=== PATIENT | female | born 1935 | race Caucasian/White ===

== ENCOUNTER → 2016-09-24 | Outpatient (CLI) | payer MEDICARE ==
[~2016-09-24] MED LIST: ASPIRIN 81M81 MG/TA2 PO; BETAPACE 80MG80 MG PO; CALCIUM 500500 M2 PO; CALCIUM CITRAT200 MG PO; CARDI-OMEGA1000 MG PO; CO Q-1010 MG PO; FEMARA2.5 MG PO; FLEXERIL10 MG PO; GLUCOSAMINE & C1 TE1 PO; HYALURONIC ACID; HYALURONIC ACID PO; LISINOPRIL5 MG PO; MELATONIN5 M1 SL; MILK THISTLE500 M1 PO; NORCO 325 MG-51 TAB PO; NYSTATIN 100MU/ML PO; PHENERGAN 25 TA25 MG PO; SCOPALAMINE PATCH TOP; TURMERIC1 POW; VICODIN 5/5001 UDTAB PO; VITAMIN C500 MG PO; VITAMIN D PO; VITAMIN D5000 IU PO; [UNRECOGNIZED DRUG - OTHER]
== END ==
LOC: MC.RAD 11:10
DX: Z12.31 Encounter for screening mammogram for malignant neoplasm of breast (principal)

== ENCOUNTER 2017-06-28 14:10 | Emergency (ER) | payer MEDICARE ==
[2005-07-27 03:46] VITALS: BP 127/84
[~2017-06-28] VITALS: Ht 162.6 cm; Wt 77.3 kg
[2017-06-28 14:14] VITALS: BP 161/112; TEMP 96.9
[2017-06-28] MEDS ORDERED: ALEVE 220MG220 MG PO (15:18)
[2017-06-28 16:50] VITALS: PULSE 56
== END 2017-06-28 16:50 | disposition home or self-care (01) ==
LOC: COL.ER 14:10
DX: S50.02XA Contusion of left elbow, initial encounter (principal); S29.012A Strain of muscle and tendon of back wall of thorax, initial encounter; S39.012A Strain of muscle, fascia and tendon of lower back, initial encounter; W18.2XXA Fall in (into) shower or empty bathtub, initial encounter; Y93.E1 Activity, personal bathing and showering

== ENCOUNTER → 2018-02-05 | Outpatient (CLI) | payer MEDICARE ==
[~2018-02-05] MED LIST changes: +ALEVE 220MG220 MG PO
== END ==
LOC: MC.RAD 11:00
DX: Z12.31 Encounter for screening mammogram for malignant neoplasm of breast (principal); Z90.11 Acquired absence of right breast and nipple; Z85.3 Personal history of malignant neoplasm of breast

== ENCOUNTER 2018-06-30 22:54 | Emergency (ER) | payer MEDICARE, OTHER ==
[2005-07-27 03:46] VITALS: BP 127/84
[~2018-06-30] VITALS: Ht 165.1 cm; Wt 79.1 kg
[2018-06-30 22:58] VITALS: TEMP 97.6
[2018-07-01 01:21] VITALS: BP 176/74; PULSE 47
== END 2018-07-01 01:28 | disposition home or self-care (01) ==
LOC: COL.ER 22:54
DX: S01.01XA Laceration without foreign body of scalp, initial encounter (principal); S16.1XXA Strain of muscle, fascia and tendon at neck level, initial encounter; I48.91 Unspecified atrial fibrillation; Z23 Encounter for immunization; Z79.82 Long term (current) use of aspirin; W01.198A Fall on same level from slipping, tripping and stumbling with subsequent striking against other object, initial encounter; Y92.009 Unspecified place in unspecified non-institutional (private) residence as the place of occurrence of the external cause

== ENCOUNTER 2018-10-16 00:06 | Emergency (ER) | payer MEDICARE ==
[2005-07-27 03:46] VITALS: BP 127/84
[2018-10-16 00:27] VITALS: TEMP 96.9
[2018-10-16 00:32] LABS: BASO % 0.7 % (0.0-2.0); EOS # 0.3 (0.0-0.7); EOS % 5.3 % (0-4.0); GRAN # 2.8 (1.4-6.5); GRAN % 49.3 % (42.2-75.2); HEMATOCRIT 45.7 % (37.0-47.0); HEMOGLOBIN 15.3 g/dl (12.5-16.0); LYMPH # 1.7 (1.2-3.4); LYMPH % 30.5 % (20.0-51.0); MEAN CELL VOLUME 92 fl (80.0-100.0); MEAN CORPUSCULAR HEMOGLOBIN 31 pg (27.0-31.0); MEAN CORPUSCULAR HGB CONC 34 g/dl (33.0-37.0); MEAN PLATELET VOLUME 10.4 fl (7.4-10.4); MONO # 0.8 (0.1-0.6); PLATELET COUNT 229 K/mm3 (130-400); RED BLOOD COUNT 4.96 M/mm3 (4.10-5.30); REDCELL DISTRIBUTION WIDTH-CV 12.5 % (11.5-14.5)
[2018-10-16 00:43] LABS: ALANINE AMINOTRANSFERASE 14 U/L (9-52); ALBUMIN 4.2 gm/dL (3.5-5.0); ALKALINE PHOSPHATASE 99 U/L (50-136); ANION GAP 12 mmol/L (7-16); AST,SGOT 24 U/L (15-37); BILIRUBIN,TOTAL 0.3 mg/dL (0.0-1.0); BLOOD UREA NITROGEN 22 mg/dL (7-17); CALCIUM 9.9 mg/dL (8.4-10.2); CARBON DIOXIDE 24 mmol/L (22-30); CHLORIDE 105 mmol/L (98-107); GLUCOSE 99 mg/dL (74-106); INR 0.9 (0.8-3.0); POTASSIUM 4.2 mmol/L (3.4-5.0); PROTHROMBIN TIME 10.3 SECONDS (9.7-12.8); SODIUM 142 mmol/L (137-145); TOTAL PROTEIN 7.7 gm/dL (6.4-8.2)
[2018-10-16 00:45] LABS: PARTIAL THROMBOPLASTIN TIME 27.1 SECONDS (26.0-37.0)
[2018-10-16 01:04] LABS: TROPONIN-I < 0.012 ng/mL (0.000-0.035)
[2018-10-16] MEDS ORDERED: ELIQUIS 5MG PO (04:15)
[2018-10-16 04:40] VITALS: BP 136/71; PULSE 63
== END 2018-10-16 04:40 | disposition home or self-care (01) ==
LOC: COL.ER 00:06
PROVIDERS: Emergency Medicine
DX: I48.92 Unspecified atrial flutter (principal); I48.91 Unspecified atrial fibrillation; Z85.3 Personal history of malignant neoplasm of breast; Z79.82 Long term (current) use of aspirin; Z90.11 Acquired absence of right breast and nipple
CPT/HCPCS: J7030

== ENCOUNTER 2018-12-06 18:10 | Emergency (ER) | payer MEDICARE ==
[2005-07-27 03:46] VITALS: BP 127/84
[~2018-12-06] VITALS: Ht 167.6 cm; Wt 75.9 kg
[~2018-12-06 18:10] MED LIST changes: +ELIQUIS 5MG PO
[2018-12-06 18:17] VITALS: TEMP 97.8
[2018-12-06] MEDS ORDERED: VITAMIN B COMPL1 SGL PO (18:43)
[2018-12-06] MEDS ORDERED: MAGNESIUM250 M1 PO (18:44)
[2018-12-06] MEDS ORDERED: OSCAL 500 TAB500 MG PO (18:44)
[2018-12-06] MEDS ORDERED: COUMADIN4 MG PO (18:55)
[2018-12-06 19:04] VITALS: BP 122/60
[2018-12-06 19:42] VITALS: PULSE 55
== END 2018-12-06 19:43 | disposition home or self-care (01) ==
LOC: COL.ER 18:10
DX: S09.90XA Unspecified injury of head, initial encounter (principal); S00.83XA Contusion of other part of head, initial encounter; I48.91 Unspecified atrial fibrillation; Z85.3 Personal history of malignant neoplasm of breast; W01.198A Fall on same level from slipping, tripping and stumbling with subsequent striking against other object, initial encounter; Y92.009 Unspecified place in unspecified non-institutional (private) residence as the place of occurrence of the external cause

== ENCOUNTER → 2020-03-20 | Outpatient (CLI) | payer MEDICARE ==
[~2020-03-20] MED LIST changes: +ALPHA LIPOIC A200 M2 PO; +B-12 500 MCG PO; +COUMADIN4 MG PO; +MAGNESIUM250 M1 PO; +MILK THISTLE150 MG PO; +NORVASC 5MG5 MG/TAB PO; +OSCAL 500 TAB500 MG PO; +THE MEDICINE S200 M2 PO; +TYLENOL 500MG500 MG PO; +ULTRAM 50MG TAB50 MG PO; +VITAMIN B COMPL1 SGL PO; +VITAMIN D 1001000 IU PO
[2020-03-20 11:57] VITALS: BP 125/61; PULSE 54; TEMP 98.3
== END ==
LOC: COL.ER 11:43
DX: Z48.02 Encounter for removal of sutures (principal)

== ENCOUNTER 2020-07-31 17:12 | Emergency (ER) | payer MEDICARE ==
[2005-07-27 03:46] VITALS: BP 127/84
[2020-07-31 17:29] VITALS: TEMP 98.2
[2020-07-31 18:41] VITALS: BP 132/65; PULSE 50
== END 2020-07-31 18:42 | disposition home or self-care (01) ==
LOC: COL.ER 17:12
DX: S30.0XXA Contusion of lower back and pelvis, initial encounter (principal); I10 Essential (primary) hypertension; I48.91 Unspecified atrial fibrillation; Z88.1 Allergy status to other antibiotic agents; Z88.4 Allergy status to anesthetic agent; Z79.01 Long term (current) use of anticoagulants; W07.XXXA Fall from chair, initial encounter; Y92.009 Unspecified place in unspecified non-institutional (private) residence as the place of occurrence of the external cause

== ENCOUNTER 2020-09-13 03:59 | Emergency (ER) | payer MEDICARE ==
[2005-07-27 03:46] VITALS: BP 127/84
[~2020-09-13] VITALS: Ht 160 cm; Wt 75.5 kg
[2020-09-13 04:24] LABS: BASO % 0.9 % (0.0-2.0); EOS # 0.3 (0.0-0.7); EOS % 5.3 % (0-4.0); GRAN # 2.3 (1.4-6.5); HEMATOCRIT 45.2 % (37.0-47.0); HEMOGLOBIN 14.4 g/dl (12.5-16.0); LYMPH # 1.4 (1.2-3.4); LYMPH % 30.3 % (20.0-51.0); MEAN CELL VOLUME 91 fl (80.0-100.0); MEAN CORPUSCULAR HEMOGLOBIN 29 pg (27.0-31.0); MEAN CORPUSCULAR HGB CONC 32 g/dl (33.0-37.0); MEAN PLATELET VOLUME 10.8 fl (7.4-10.4); MONO # 0.7 (0.1-0.6); MONO % 14.5 % (1.7-9.3); PLATELET COUNT 227 K/mm3 (130-400); RED BLOOD COUNT 4.96 M/mm3 (4.10-5.30); REDCELL DISTRIBUTION WIDTH-CV 13.2 % (11.5-14.5)
[2020-09-13 04:28] LABS: INR 1.8 (0.8-3.0); PROTHROMBIN TIME 20.2 SECONDS (9.7-12.8)
[2020-09-13 04:30] LABS: ALANINE AMINOTRANSFERASE 15 U/L (4-34); ALBUMIN 4.4 gm/dL (3.5-5.0); ALKALINE PHOSPHATASE 91 U/L (50-136); ANION GAP 7 mmol/L (7-16); AST,SGOT 28 U/L (15-37); BILIRUBIN,TOTAL 0.3 mg/dL (0.0-1.0); BLOOD UREA NITROGEN 18 mg/dL (7-17); CALCIUM 9.7 mg/dL (8.4-10.2); CARBON DIOXIDE 28 mmol/L (22-30); CHLORIDE 104 mmol/L (98-107); CREATINE KINASE 65 U/L (30-135); CREATININE, serum 0.75 (0.52-1.25); GLUCOSE 101 mg/dL (74-106); POTASSIUM 4.3 mmol/L (3.4-5.0); SODIUM 140 mmol/L (137-145); TOTAL PROTEIN 7.6 gm/dL (6.4-8.2)
[2020-09-13 04:45] LABS: TROPONIN-I < 0.012 ng/mL (0.000-0.035)
[2020-09-13 05:34] VITALS: BP 130/62; PULSE 47; TEMP 97.5
== END 2020-09-13 05:31 | disposition home or self-care (01) ==
LOC: COL.ER 03:59
PROVIDERS: Emergency Medicine
DX: I48.0 Paroxysmal atrial fibrillation (principal); I10 Essential (primary) hypertension; Z88.1 Allergy status to other antibiotic agents; Z88.4 Allergy status to anesthetic agent; Z79.01 Long term (current) use of anticoagulants
CPT/HCPCS: J7030

== ENCOUNTER 2020-09-30 11:06 | Emergency (ER) | payer MEDICARE ==
[2005-07-27 03:46] VITALS: BP 127/84
[~2020-09-30] VITALS: Ht 160 cm; Wt 75.5 kg
[2020-09-30 11:51] LABS: INR 2.1 (0.8-3.0); PROTHROMBIN TIME 23.2 SECONDS (9.7-12.8)
[2020-09-30] MEDS ORDERED: LIDODERM 5% PATC1 EA TP (12:45)
[2020-09-30 13:09] VITALS: BP 131/73; PULSE 44; TEMP 97.9
== END 2020-09-30 13:10 | disposition home or self-care (01) ==
LOC: COL.ER 11:06
PROVIDERS: Emergency Medicine
DX: S22.31XA Fracture of one rib, right side, initial encounter for closed fracture (principal); I48.0 Paroxysmal atrial fibrillation; Z79.01 Long term (current) use of anticoagulants; W01.10XA Fall on same level from slipping, tripping and stumbling with subsequent striking against unspecified object, initial encounter

== ENCOUNTER 2020-11-14 11:34 | Emergency (ER) | payer MEDICARE ==
[~2020-11-14] VITALS: Ht 162.6 cm; Wt 75.5 kg
[~2020-11-14 11:34] MED LIST changes: +LIDODERM 5% PATC1 EA TP
[2020-11-14 12:10] VITALS: TEMP 98
[2020-11-14 13:14] LABS: BASO # 0.1 (0.0-0.2); BASO % 0.9 % (0.0-2.0); EOS # 0.2 (0.0-0.7); EOS % 4.2 % (0-4.0); GRAN # 3.4 (1.4-6.5); GRAN % 58.3 % (42.2-75.2); HEMOGLOBIN 13.2 g/dl (12.5-16.0); LYMPH # 1.3 (1.2-3.4); LYMPH % 22.2 % (20.0-51.0); MEAN CELL VOLUME 91 fl (80.0-100.0); MEAN CORPUSCULAR HEMOGLOBIN 29 pg (27.0-31.0); MEAN CORPUSCULAR HGB CONC 32 g/dl (33.0-37.0); MEAN PLATELET VOLUME 11.4 fl (7.4-10.4); MONO # 0.8 (0.1-0.6); MONO % 14.2 % (1.7-9.3); PLATELET COUNT 213 K/mm3 (130-400); REDCELL DISTRIBUTION WIDTH-CV 13.2 % (11.5-14.5)
[2020-11-14 13:17] LABS: INR 3.5 (0.8-3.0); PROTHROMBIN TIME 39.4 SECONDS (9.7-12.8)
[2020-11-14 13:26] LABS: ALBUMIN 3.8 gm/dL (3.5-5.0); BILIRUBIN,TOTAL 0.3 mg/dL (0.0-1.0); CALCIUM 9.3 mg/dL (8.4-10.2); CREATININE, serum 0.66 (0.52-1.25); POTASSIUM 4.6 mmol/L (3.4-5.0); TOTAL PROTEIN 6.9 gm/dL (6.4-8.2)
[2020-11-14 14:12] VITALS: BP 145/92; PULSE 50
== END 2020-11-14 14:12 | disposition home or self-care (01) ==
LOC: COL.ER 11:34
PROVIDERS: Nurse Practitioner Primary Care
DX: M25.511 Pain in right shoulder (principal); I10 Essential (primary) hypertension; I48.91 Unspecified atrial fibrillation; Z79.01 Long term (current) use of anticoagulants; Z79.899 Other long term (current) drug therapy; W01.198A Fall on same level from slipping, tripping and stumbling with subsequent striking against other object, initial encounter; Y92.009 Unspecified place in unspecified non-institutional (private) residence as the place of occurrence of the external cause

== ENCOUNTER 2021-01-22 14:00 | Outpatient (RCR) | payer MEDICARE ==
[2021-01-25] MEDS ORDERED: COUMADIN 3MG3 MG/TAB PO (08:21)
[2021-01-25] MEDS ORDERED: BLUE-EMU LIDOC1 EACH TP (08:22)
[2021-01-25] MEDS ORDERED: OMNICEF 300MG300 MG PO (08:24)
[2021-02-09] MEDS ORDERED: OSCAL 500 TAB500 MG PO ×2 (11:18)
[2021-02-09] MEDS ORDERED: VITAMIN C500 MG PO ×2 (11:19)
[2021-02-09] MEDS ORDERED: DUO-KAPS1 CAP PO ×2 (11:19)
[2021-02-09] MEDS ORDERED: TYLENOL 500MG500 MG PO ×2 (11:20)
[2021-02-09] MEDS ORDERED: ULTRAM 50MG TAB50 MG PO ×2 (11:21→11:25)
== END 2021-03-05 08:17 | disposition home or self-care (01) ==
LOC: MKS.ESL.PT 14:00
DX: R42 Dizziness and giddiness (principal)

== ENCOUNTER 2021-01-23 06:33 | Observation (INO) | payer MEDICARE ==
[~2021-01-23] VITALS: Ht 165.1 cm; Wt 70.3 kg
[2021-01-23] VITALS (360 sets, daily range): BP systolic 122–141; BP diastolic 63–69; PULSE 50–57; TEMP 97.3–98; O2SAT 86–100
[2021-01-23 07:22] LABS: ALANINE AMINOTRANSFERASE 17 U/L (4-34); ALBUMIN 3.7 gm/dL (3.5-5.0); ALKALINE PHOSPHATASE 94 U/L (50-136); ANION GAP 6 mmol/L (7-16); AST,SGOT 23 U/L (15-37); BILIRUBIN,TOTAL 0.7 mg/dL (0.0-1.0); BLOOD UREA NITROGEN 12 mg/dL (7-17); CALCIUM 9.3 mg/dL (8.4-10.2); CARBON DIOXIDE 28 mmol/L (22-30); CHLORIDE 106 mmol/L (98-107); CREATININE, serum 0.69 (0.52-1.25); GLUCOSE 99 mg/dL (74-106); POTASSIUM 4.4 mmol/L (3.4-5.0); SODIUM 139 mmol/L (137-145)
[2021-01-23 07:33] LABS: BASO % 0.3 % (0.0-2.0); EOS # 0.1 (0.0-0.7); EOS % 1.4 % (0-4.0); GRAN # 4.2 (1.4-6.5); GRAN % 66.9 % (42.2-75.2); HEMOGLOBIN 14.3 g/dl (12.5-16.0); LYMPH # 1.3 (1.2-3.4); LYMPH % 20.9 % (20.0-51.0); MEAN CELL VOLUME 94 fl (80.0-100.0); MEAN CORPUSCULAR HEMOGLOBIN 30 pg (27.0-31.0); MEAN CORPUSCULAR HGB CONC 32 g/dl (33.0-37.0); MEAN PLATELET VOLUME 10.9 fl (7.4-10.4); MONO # 0.7 (0.1-0.6); MONO % 10.5 % (1.7-9.3); PLATELET COUNT 251 K/mm3 (130-400); RED BLOOD COUNT 4.81 M/mm3 (4.10-5.30); REDCELL DISTRIBUTION WIDTH-CV 13.6 % (11.5-14.5)
[2021-01-23 07:35] LABS: TROPONIN-I < 0.012 ng/mL (0.000-0.035)
[2021-01-23 07:50] LABS: INR 2.3 (0.8-3.0); PROTHROMBIN TIME 25.3 SECONDS (9.7-12.8)
[2021-01-23 07:52] LABS: PARTIAL THROMBOPLASTIN TIME 33.8 SECONDS (26.0-37.0)
[2021-01-23 08:21] LABS: COLLECTION METHOD CLEAN CATCH
[2021-01-23 08:42] LABS: PH 8 (5-8); SQUAMOUS EPITHELIAL None Seen /hpf; URINE APPEARANCE Hazy; URINE BACTERIA Rare /hpf; URINE BILIRUBIN Negative (NEGATIVE); URINE BLOOD 1+ (NEGATIVE); URINE COLOR Yellow; URINE GLUCOSE Negative (NEGATIVE); URINE KETONE Negative (NEGATIVE); URINE LEUKOCYTE ESTERASE Negative (NEGATIVE); URINE NITRATE Positive (NEGATIVE); URINE PROTEIN(semi-quant) Negative (NEGATIVE); URINE RBC 0-2 /hpf; URINE UROBILINOGEN Negative (NEGATIVE)
--- NOTE | 2021-01-23 10:23 | NUR ---
RECEIVED REPORT FROM SHAD WEBBER IN ER. AWAITING ARRIVAL OF PT TO ICU4.
--- NOTE | 2021-01-23 10:45 | NUR ---
PT ARRIVES TO ICU 4. TRANSFERS SELF TO ICU BED, SLPW STEADY GAIT. PT DOES C/O NAUSEA WITH MOVEMENT BUT AFTER SETTLED INTO BED FOR TEN MINUTES IS ABLE TO CALM DOWN. VSS. CALL LIGHT WITHIN REACH. DAUGHTER IN LAW BROUGHT TO BEDSIDE.
--- NOTE | 2021-01-23 15:30 | NUR ---
MICHEL VILLALOBOS WITH DR GARSIA MADE AWARE OF PT'S 6 BEAT RUN OF VTACH EARLIER BUT PT WAS ASYMPTOMATIC WHEN RN CHECKED ON HER RIGHT AFTER EVENT. PT WAS SITTING UP IN BED TALKING TO DIL AT BEDSIDE AND DID NOT NOTICE IRREGULAR HEARTBEAT.
[2021-01-24] VITALS (337 sets, daily range): BP systolic 114–147; BP diastolic 47–63; PULSE 51–77; TEMP 97.4–98.3; O2SAT 81–99
[2021-01-24 05:17] LABS: HEMATOCRIT 37.3 % (37.0-47.0); MEAN CELL VOLUME 93 fl (80.0-100.0); MEAN CORPUSCULAR HEMOGLOBIN 30 pg (27.0-31.0); MEAN CORPUSCULAR HGB CONC 32 g/dl (33.0-37.0); MEAN PLATELET VOLUME 10.6 fl (7.4-10.4); PLATELET COUNT 197 K/mm3 (130-400); RED BLOOD COUNT 4.01 M/mm3 (4.10-5.30); REDCELL DISTRIBUTION WIDTH-CV 13.7 % (11.5-14.5)
[2021-01-24 05:28] LABS: PROTHROMBIN TIME 33.2 SECONDS (9.7-12.8)
[2021-01-24 05:31] LABS: CALCIUM 7.4 mg/dL (8.4-10.2); CREATININE, serum 0.53 (0.52-1.25); MAGNESIUM 1.8 mg/dL (1.6-2.3); POTASSIUM 3.5 mmol/L (3.4-5.0)
--- NOTE | 2021-01-24 13:15 | NUR ---
Pt arrived to medical unit room 313 from ICU at this time. Oriented pt to room and med rec updated. A&Ox4. Heart RRR. Lungs CTA. Denies SOA, does report some pain to left side w/sneezing and coughing. Declines intervention at this time. Denies further needs. Call light in reach.
--- NOTE | 2021-01-24 14:02 | NUR ---
MISS. SOTO WAS RESTING COMFRTABLY IN HER BED DURIG ASSESSMENT. SHE ORDERED BREAKFAST AND VOIDED ON THE BEDSIDE COMMODE. SHE STATED THAT HER GOALS WERE TO GO UPSTAIRS.
--- NOTE | 2021-01-24 16:16 | NUR ---
Shopping Investigator met with patient to discuss discharge planning. Patient lives in [place] with her , Hay (ph#[phone]) and advised her son, Jg (ph#[phone]) lives nearby as well. Patient sees Dr. Nance for primary care and obtains medications from [facility] with no difficulties. Patient uses a cane occasionally and reports independence with ADLS. Patient advised her , Hay is also normally independent with ADLS but receives home hospice services. Patient states her son is staying with Hay to provide support while he is in the hospital. Patient advised her , Hay is her DPOA-HC and gJ is the alternate agent. Patient plans to return home upon discharge. SW reviewed therapy's recommendation for Home Health and patient is agreeable to this. Patient would like referral sent to [facility] as they have had [facility] in the past. SW faxed referral to [facility]. Discharge Plan: Home with Home Health.
--- NOTE | 2021-01-24 17:49 | NUR ---
MISS SOTO LEFT THE UNIT AT 1318 WITH NURSE ON A WHEELCHAIR WITH ALL HER BELONGINGS. SHE WAS PLACED IN ROOM 313 AND THE NURSE EDUAR TOOK OVER CARE
[2021-01-25 00:52] VITALS: BP 143/60; PULSE 70; TEMP 98.2
[2021-01-25 04:22] VITALS: BP 143/45; PULSE 74; TEMP 98.7
[2021-01-25 06:52] LABS: HEMATOCRIT 40.5 % (37.0-47.0); HEMOGLOBIN 12.7 g/dl (12.5-16.0); MEAN CELL VOLUME 94 fl (80.0-100.0); MEAN CORPUSCULAR HEMOGLOBIN 30 pg (27.0-31.0); MEAN CORPUSCULAR HGB CONC 31 g/dl (33.0-37.0); MEAN PLATELET VOLUME 10.8 fl (7.4-10.4); PLATELET COUNT 232 K/mm3 (130-400); REDCELL DISTRIBUTION WIDTH-CV 13.9 % (11.5-14.5)
[2021-01-25 07:07] LABS: CALCIUM 8.8 mg/dL (8.4-10.2); CREATININE, serum 0.56 (0.52-1.25); POTASSIUM 4.1 mmol/L (3.4-5.0)
[2021-01-25 07:10] LABS: PROTHROMBIN TIME 33.2 SECONDS (9.7-12.8)
[2021-01-25 07:44] VITALS: BP 140/56; PULSE 80; TEMP 97.7
[2021-01-25] MEDS ORDERED: COUMADIN 3MG3 MG/TAB PO (08:21)
[2021-01-25] MEDS ORDERED: BLUE-EMU LIDOC1 EACH TP (08:22)
[2021-01-25] MEDS ORDERED: OMNICEF 300MG300 MG PO (08:24)
--- NOTE | 2021-01-25 10:02 | NUR ---
Assessment completed, alert/oriented, vital signs stable, reports left posterior rib pain is improved/ Lidocaine patch applied, reports breathing is improved as well, lungs are CTA throughout, no resp.difficulty noted at rest, heart RRR/ dsital pulses palpable, IV abx infusing, she is sitting up eating breakfast, morning meds given, plans for discharge home today with family
--- NOTE | 2021-01-25 13:34 | NUR ---
Patternmaker Plaster And Plastic spoke with Zafar at [facility] who advised they are able to accept patient. YADIEL met with patient who will be discharging home today. Patient had her son, Jg on speakerphone so YADIEL updated Jg on the discharge plan. Jg requested [facility] contact him to schedule initial visit and patient is agreeable to this. YADIEL contacted Zafar who advised she would contact Jg for scheduling. YADIEL faxed discharge orders to [facility].
--- NOTE | 2021-01-25 15:59 | NUR ---
Discharge instructions revewied with the patient, instructed to follow up with PCP and Cards as we have scheduled for her, instructed to go get set up with a holter monitor at cardiology office once she is discharged from hospital, IV and tele removed, leaving with daughter in-law, she is ambulatory and I escorted them out
== END 2021-01-25 16:13 | disposition home or self-care (01) ==
LOC: COL.ER 06:33 → ICU 08:59 → MEDICAL 08:59
PROVIDERS: Emergency Medicine; Internal Medicine; Physician Assistant; Student in an Organized Health Care Education/Training Program; ADMIT Student in an Organized Health Care Education/Training Program
DX: R00.1 Bradycardia, unspecified (principal); I44.0 Atrioventricular block, first degree; J18.9 Pneumonia, unspecified organism; R55 Syncope and collapse; I48.91 Unspecified atrial fibrillation; I10 Essential (primary) hypertension; C50.919 Malignant neoplasm of unspecified site of unspecified female breast; M19.90 Unspecified osteoarthritis, unspecified site; Z20.822 Contact with and (suspected) exposure to COVID-19; Z79.899 Other long term (current) drug therapy; Z79.01 Long term (current) use of anticoagulants
CPT/HCPCS: 99223-AI; 99232-AI; A9284; G0378; J0456; J0696; J7030; J7050

== ENCOUNTER 2021-02-05 09:31 | Inpatient (IN) | payer MEDICARE ==
[~2021-02-05] VITALS: Ht 165.1 cm; Wt 71.0 kg
[~2021-02-05 09:31] MED LIST changes: +BLUE-EMU LIDOC1 EACH TP; +COUMADIN 3MG3 MG/TAB PO; +OMNICEF 300MG300 MG PO
[2021-02-05 10:08] LABS: BASO % 0.5 % (0.0-2.0); EOS # 0.1 (0.0-0.7); EOS % 1.5 % (0-4.0); GRAN # 3.9 (1.4-6.5); GRAN % 67.2 % (42.2-75.2); HEMATOCRIT 41.2 % (37.0-47.0); HEMOGLOBIN 13.2 g/dl (12.5-16.0); LYMPH # 1.2 (1.2-3.4); LYMPH % 20.8 % (20.0-51.0); MEAN CELL VOLUME 92 fl (80.0-100.0); MEAN CORPUSCULAR HEMOGLOBIN 30 pg (27.0-31.0); MEAN CORPUSCULAR HGB CONC 32 g/dl (33.0-37.0); MEAN PLATELET VOLUME 9.9 fl (7.4-10.4); MONO # 0.6 (0.1-0.6); MONO % 9.5 % (1.7-9.3); PLATELET COUNT 296 K/mm3 (130-400); RED BLOOD COUNT 4.48 M/mm3 (4.10-5.30)
[2021-02-05 10:18] LABS: INR 1.6 (0.8-3.0); PROTHROMBIN TIME 17.6 SECONDS (9.7-12.8)
[2021-02-05 10:37] LABS: ALBUMIN 3.1 gm/dL (3.4-4.8); BILIRUBIN,TOTAL 0.4 mg/dL (0.2-1.2); CALCIUM 9.4 mg/dL (8.4-10.2); CREATININE, serum 0.79 mg/dL (0.57-1.11); POTASSIUM 4.1 mmol/L (3.5-4.5); TOTAL PROTEIN 6.5 gm/dL (6.2-8.1)
--- NOTE | 2021-02-05 13:10 | NUR ---
Patient up from ER. Alert and oriented x 3. Family at bedside. Tedhose to RLE SCDS to BLE. INT to RAC. Patient denies pain at this time. Denies further needs at this time.
[2021-02-05 13:30] VITALS: BP 137/54; PULSE 64; TEMP 98.2
--- NOTE | 2021-02-05 14:11 | NUR ---
Contacted Renetta MORENO for orders for patient.
[2021-02-05 15:41] VITALS: BP 125/48; PULSE 72; TEMP 98.3
[2021-02-05 16:21] LABS: COLLECTION METHOD CATHETER
--- NOTE | 2021-02-05 16:32 | NUR ---
Tele placed on patient. Patient denies pain at this time.
[2021-02-05 16:44] LABS: MUCOUS Present /lpf; PH 7 (5-8); SQUAMOUS EPITHELIAL 0-2 /hpf; URINE APPEARANCE Clear; URINE BACTERIA None Seen /hpf; URINE BILIRUBIN Negative (NEGATIVE); URINE BLOOD Negative (NEGATIVE); URINE COLOR Yellow; URINE GLUCOSE Negative (NEGATIVE); URINE KETONE Negative (NEGATIVE); URINE LEUKOCYTE ESTERASE Negative (NEGATIVE); URINE NITRATE Negative (NEGATIVE); URINE PROTEIN(semi-quant) Negative (NEGATIVE); URINE UROBILINOGEN Negative (NEGATIVE)
[2021-02-05 17:48] LABS: TROPONIN-I < 0.010 ng/mL (0.00-0.033)
--- NOTE | 2021-02-05 17:58 | NUR ---
Patient doing well throughout the day, denies pain at this time. Family at bedside. denies pain at this time. Denies needs at this time. WIll report off to warehouse supervisor 3rd shift.
[2021-02-05 19:43] VITALS: BP 136/49; PULSE 81; TEMP 98.7
--- NOTE | 2021-02-05 22:23 | NUR ---
Patient resting in bed upon enter the room. Patient alert and oriented. Patient denies pain while at rest. Patient received pain medication at shift change. Garduno catheter patent and draining clear yellow urine. Left elbow skin tear site covered with foam dressing. IVF infusing per MAR. Call light in reach. Will continue to monitor.
[2021-02-06] VITALS (7 sets, daily range): BP systolic 129–168; BP diastolic 46–62; PULSE 72–94; TEMP 97.4–99.1
[2021-02-06 06:24] LABS: BASO % 0.4 % (0.0-2.0); EOS # 0.2 (0.0-0.7); EOS % 2.1 % (0-4.0); GRAN # 6.1 (1.4-6.5); GRAN % 75.3 % (42.2-75.2); HEMATOCRIT 40.5 % (37.0-47.0); HEMOGLOBIN 12.9 g/dl (12.5-16.0); LYMPH # 1.1 (1.2-3.4); LYMPH % 13.6 % (20.0-51.0); MEAN CELL VOLUME 94 fl (80.0-100.0); MEAN CORPUSCULAR HEMOGLOBIN 30 pg (27.0-31.0); MEAN CORPUSCULAR HGB CONC 32 g/dl (33.0-37.0); MEAN PLATELET VOLUME 10.5 fl (7.4-10.4); MONO # 0.7 (0.1-0.6); MONO % 8.4 % (1.7-9.3); PLATELET COUNT 284 K/mm3 (130-400); REDCELL DISTRIBUTION WIDTH-CV 14.5 % (11.5-14.5)
[2021-02-06 06:33] LABS: INR 1.6 (0.8-3.0); PROTHROMBIN TIME 17.9 SECONDS (9.7-12.8)
[2021-02-06 06:47] LABS: CALCIUM 9.4 mg/dL (8.4-10.2); CREATININE, serum 0.77 mg/dL (0.57-1.11); MAGNESIUM 2.1 mg/dL (1.6-2.6); POTASSIUM 4.7 mmol/L (3.5-4.5)
--- NOTE | 2021-02-06 10:43 | NUR ---
Initial visit; Patient thanked Multiple Punch Press Operator for looking in on her and offering to keep her in Multiple Punch Press Operator's prayers and offering God's blessings.
--- NOTE | 2021-02-06 11:09 | NUR ---
Contacted hospitalist. Patient family would like to further discuss DNR status.
--- NOTE | 2021-02-06 11:36 | NUR ---
YADIEL met with the patient and her son, Jg (ph#[phone]), to discuss discharge plan. The patient resides at [facility] with her , Hay. Jg reports that Hay has some dementia and is on hospice. The patient reports independence with ADLs and has a cane and walker. The patient's PCP is Dr. Jaeml Nance and she receives her medications from [facility]. She states that [facility] administers her meds. The patient has a DPOA-HC in EMR. The patient and Jg had an updated DPOA-HC that they would like to have witnessed while here. YADIEL and RN student witnessed the patient's signature. The patient designated her son, Jg, as her DPOA-HC. SW provided the patient and her son with with the original and some copies. SW placed a copy in the patient's chart. The patient has a hip fracture. SW discussed post-acute rehab upon discharge. The patient and Jg inquired about the patient just returning back to [facility] with home health PT/OT or outpatient PT/OT. SW informed them how [facility] will want to see updates to see if they could accomodate her after the surgery. SW informed them about how post-acute rehab is typically recommended upon discharge. The patient and Jg verbalized understanding. The patient and Jg were open to SW sending referrals to SNFs. The patient and Jg chose 1) [facility] 2) [facility]. Jg is interested in the facilities visitation policy, so that Hay can visit the patient. YADIEL contacted and faxed a referral to both facilities and requested that they contact the patient's son. Awaiting screens. The patient also has Medicare [employer] and will require insurance auth through [employer]. SW to submit for auth closer to discharge date. *Discharge plan: SNF*
--- NOTE | 2021-02-06 11:39 | NUR ---
Hospitalist in to see patient.
--- NOTE | 2021-02-06 11:47 | NUR ---
Hospitalist in to see patient
--- NOTE | 2021-02-06 18:57 | NUR ---
Patient doing well throughout the day, denies pain at this time. Oxycodone given this afternoon for increased pain, patient states that oxycodone worked better for her pain than morphine did last night. Repositioned throughout the day. Heel protectors placed on patient. Denies needs at this time. Will report off to shift supervisor melting.
--- NOTE | 2021-02-06 22:53 | NUR ---
Patient alert and oriented. Patient reports moderate pain to her left leg and requesting pain meds. PRN oxycodone given at 19:26 pm. VS stable. IVF infusing well per MAR. Garduno catheter patent and draining clear yellow urine. Call light in reach. Will continue to monitor.
[2021-02-07] VITALS (13 sets, daily range): BP systolic 129–171; BP diastolic 46–82; PULSE 60–83; TEMP 69–98.5
--- NOTE | 2021-02-07 06:04 | NUR ---
Patient remains on NPO from midnight for surgery today. Call light in reach.
[2021-02-07 07:58] LABS: INR 1.3 (0.8-3.0); PROTHROMBIN TIME 14.5 SECONDS (9.7-12.8)
--- NOTE | 2021-02-07 08:39 | NUR ---
Tiana, at [facility], reports that they are good to follow the patient. They would like to see how she does after surgery. The patient's son, Jg, contacted . Jg reports that they now prefer [facility], since it is closer to [place], unless [facility].
--- NOTE | 2021-02-07 13:08 | NUR ---
PT TO SURGERY PER BED WITH JULIEN AT THIS TIME.
--- NOTE | 2021-02-07 14:10 | NUR ---
The patient is to have surgery today. YADIEL faxed updates to [facility] and [facility].
--- NOTE | 2021-02-07 15:48 | NUR ---
PT TO ROOM 345 PER BED WITH REPORT FROM SANTOSH KULKARNI. PT IS A/O X3 LUNGS CLEAR, DRESSING TO LEFT HIP CDI, VSS, PT DROWSEY, POSITIVE PEDAL PULSES. IV TO PUMP PER ORDERS. SON AT BEDSIDE.
--- NOTE | 2021-02-07 15:57 | NUR ---
Brianna, at [facility], reports that they are not in-network with the patient's insuance-Medicare [facility]. She reports that they have still submitted for auth though and will let SW know what they say.
--- NOTE | 2021-02-08 00:15 | NUR ---
PT IS AWAKE ET SITTING UP IN BED. SCHEDULED TYLENOL ADMINISTERED. PT IS REPOSITIONED IN BED WITH 2 ASSIST FROM HER BACK ONTO HER RIGHT SIDE. PT YELLS OUT IN PAIN WHEN MOVED. PT IS UNABLE TO HAVE HOB LOWERED R/T CHRONIC BACK PAIN. PILLOW IS PLACED BETWEEN KNEES. ICE TO LEFT HIP. PT STATES THAT SHE ONLY HAS PAIN WHEN SHE MOVES. DENIES OTHER NEEDS. RESPIRATIONS UNLABORED. BED ALARM, CALL LIGHT WITHIN REACH.
[2021-02-08 04:27] VITALS: BP 152/73; PULSE 65; TEMP 97.9
--- NOTE | 2021-02-08 06:12 | NUR ---
PT IS AWAKE IN BED, REQUESTS TO TAKE A PAIN PILL BEFORE THERAPY WORKS WITH HER. PT IS REPOSITIONED ONTO HER BACK WITH 2 ASSIST. YELLS OUT IN PAIN WHEN MOVED. PILLOW PLACED UNDER HEELS. FRESH ICE PACK PLACED TO LEFT HIP. DRESSING CLEAN ET INTACT. PT DENIES OTHER NEEDS. IV FLUIDS INFUSING INTO LEFT AC. CALL LIGHT WITHIN REACH.
[2021-02-08 07:40] VITALS: BP 130/46; PULSE 77; TEMP 98.4
[2021-02-08 07:48] LABS: HEMOGLOBIN 11.6 g/dl (12.5-16.0)
[2021-02-08 07:54] LABS: HEMATOCRIT 36.1 % (37.0-47.0)
[2021-02-08 07:59] LABS: INR 1.2 (0.8-3.0); PROTHROMBIN TIME 13.1 SECONDS (9.7-12.8)
[2021-02-08 12:46] VITALS: BP 116/57; PULSE 59; TEMP 97.5
--- NOTE | 2021-02-08 13:09 | NUR ---
SW attended clinical rounds. The patient may be able to discharge tomorrow, 02/09. The patient's son, Jg, then arrived to the hospital. SW met with the patient and Jg. Jg had his , Chelle, on speaker phone. SW updated the patient and Jg about the referrals and how [facility] is out of network with [facility]. The patient and Jg verbalized understanding. The patient and her family report that they are good with going to [facility]. YADIEL notified and faxed updates to [facility] and [facility]. SW faxed the patient's information to [facility] for insurance auth. Awaiting auth. *Discharge plan: SNF*
--- NOTE | 2021-02-08 13:49 | NUR ---
Heart regular, lungs clear to ausculation, nause improved with Zofran, assisted back to bed with OT and one other assist, witt to dependent drainage, dressing CDI on left hip, CMS intact, pedal pulse palpable, patient resting comfortably
[2021-02-08 15:43] VITALS: BP 146/50; PULSE 80; TEMP 98.5
[2021-02-08 21:03] VITALS: BP 131/60; PULSE 84; TEMP 98.3
--- NOTE | 2021-02-08 22:00 | NUR ---
PT IS IN BED ON BACK, ASSISTED TO LAY ON RIGHT SIDE, GROANS WITH MOVEMENT. PT STATES THAT IT EASIER TO MOVE TODAY, PAIN IS WORSE IN HER LEFT FOOT THAN HER LEFT HIP, IS UNSURE WHETHER SHE POSSIBLY TWISTED IT WHEN FALLLING @ HOME. FOOT IS WARM TO TOUCH, NO OBVIOUS INJURY OR BRUISING SEEN. PT DECLINES NEED FOR PAIN MEDICATION, RATES PAIN 1/10. SCDS ON BILATERAL LEGS, PILLOW PLACED BETWEEN KNEES. FRESH ICE APPLIED TO LEFT HIP. ATTEMPTED TO DECREASE PT'S OXYGEN FROM 2L NC TO 1L. OXYGEN SATURATION DROPS FROM 99-88%. PT IS ASKED TO COUGH ET BREATHE THROUGH NOSE BUT SATS REMAIN LOW. OXYGEN TURNED BACK UP TO 2L, SATS INCREASE TO 94%. RESPIRATIONS UNLABORED. PT DENIES OTHER NEEDS. CALL LIGHT WITHIN REACH.
[2021-02-08 23:18] VITALS: BP 144/49; PULSE 82; TEMP 98.1
[2021-02-09 03:37] VITALS: BP 129/65; PULSE 64; TEMP 97.4
--- NOTE | 2021-02-09 05:16 | NUR ---
PT REPOSITIONED ONTO BACK, STATES THAT SHE HAS BEEN AWAKE SINCE 3 ET UNABLE TO SLEEP MORE. RATES PAIN AT A 3/10 FOR LEFT LEG. REQUESTS A PAIN PILL. TRAMADOL ADMINISTERED. FRESH ICE PACK APPLIED. RESPIRATIONS UNLABORED, O2 ON @ 2L NC. PT DENIES OTHER NEEDS. BED ALARM ON, CALL LIGHT WITHIN REACH.
[2021-02-09 06:37] LABS: HEMOGLOBIN 11.6 g/dl (12.5-16.0)
[2021-02-09 06:48] LABS: INR 1.2 (0.8-3.0); PROTHROMBIN TIME 12.8 SECONDS (9.7-12.8)
[2021-02-09 06:50] LABS: HEMATOCRIT 36.8 % (37.0-47.0)
[2021-02-09 06:56] LABS: CREATININE, serum 0.63 mg/dL (0.57-1.11); POTASSIUM 3.9 mmol/L (3.5-4.5)
[2021-02-09 07:11] LABS: MEAN CELL VOLUME 93 fl (80.0-100.0); MEAN CORPUSCULAR HEMOGLOBIN 30 pg (27.0-31.0); MEAN CORPUSCULAR HGB CONC 32 g/dl (33.0-37.0); MEAN PLATELET VOLUME 10.7 fl (7.4-10.4); PLATELET COUNT 249 K/mm3 (130-400); RED BLOOD COUNT 3.88 M/mm3 (4.10-5.30)
--- NOTE | 2021-02-09 09:40 | NUR ---
Patient up to the chair. 2 assist with therapy. Pivot transfer, no steps. Patient did well with breakfast. Hip incision open to air. Teds off at this time. Garduno to DD. She reports some neck pain that is chronic. Student nurse assist with cares, tylenol was given.
[2021-02-09] MEDS ORDERED: OSCAL 500 TAB500 MG PO ×2 (11:18)
[2021-02-09] MEDS ORDERED: DUO-KAPS1 CAP PO ×2 (11:19)
[2021-02-09] MEDS ORDERED: VITAMIN C500 MG PO ×2 (11:19)
[2021-02-09] MEDS ORDERED: TYLENOL 500MG500 MG PO ×2 (11:20)
[2021-02-09] MEDS ORDERED: ULTRAM 50MG TAB50 MG PO ×2 (11:21→11:25)
--- NOTE | 2021-02-09 11:40 | NUR ---
Hospitalist team rounded. Discharge orders obtained. Kosta swab per protocol & Shaan DIAZ per orders. Social work assisting with discharge planning.
[2021-02-09 11:47] VITALS: BP 129/65; PULSE 64; TEMP 97.4
[2021-02-09 12:40] VITALS: BP 150/70; PULSE 85; TEMP 98.1
--- NOTE | 2021-02-09 13:09 | NUR ---
Heart regular, noted fine crackles bilateral bases of lungs, oxygen and witt discontinued. Patient transferred to chair by PT and one other assist. Patient resting in chair, plans to discharge
--- NOTE | 2021-02-09 13:25 | NUR ---
[facility] approved SNF. Auth ID [id number]. Tiana, at [facility], confirms that they received auth from the patient's insurance. YADIEL updated the clinical team and the patient. The patient is agreeable with going to [facility]. The patient then contacted her son, Jg, and had him on speaker phone. YADIEL updated Jg. Jg was also in agreement to the plan. YADIEL presented and read the IM form outloud to the patient. The patient verbalized understanding and signed the form. YADIEL provided her with a copy. The patient is to discharge today, 02/09, to [facility] for a skilled stay. Transportation was scheduled around 1400, via [facility]. YADIEL informed the patient's RN and her son, Jg, of the time. They were both agreeable to the time. No additional needs at this time.
--- NOTE | 2021-02-09 14:20 | NUR ---
Patient and dressed and ready for discharge. Report called to Steve muller nurse, questions answered. Patient has been on the phone with her family multiple times today. Ultram relieved pain.
--- NOTE | 2021-02-09 14:30 | NUR ---
Hien discharged with [facility] transportation. her son at her side.
== END 2021-02-09 14:30 | DRG 482 ==
LOC: COL.ER 09:31 → SURG 12:08
PROVIDERS: Internal Medicine; Nurse Practitioner; Orthopaedic Surgery; Personal Emergency Response Attendant; ADMIT Internal Medicine
PROC: 0QH734Z Insertion of Internal Fixation Device into Left Upper Femur, Percutaneous Approach (ICD-10-PCS; principal; 2021-02-07 13:30)
DX: S72.002A Fracture of unspecified part of neck of left femur, initial encounter for closed fracture (principal); M19.90 Unspecified osteoarthritis, unspecified site; I10 Essential (primary) hypertension; Z87.01 Personal history of pneumonia (recurrent); K44.9 Diaphragmatic hernia without obstruction or gangrene; Z66 Do not resuscitate; C50.919 Malignant neoplasm of unspecified site of unspecified female breast; I48.0 Paroxysmal atrial fibrillation; W19.XXXA Unspecified fall, initial encounter; Y92.89 Other specified places as the place of occurrence of the external cause
CPT/HCPCS: 99223-AI; 99232-AI; 99233-AI; 99239; A9284; C1713; J0690; J2250; J2270; J2405; J2704

== ENCOUNTER 2021-03-14 14:12 | Emergency (ER) | payer MEDICARE ==
[~2021-03-14] VITALS: Ht 165.1 cm; Wt 70.5 kg
[~2021-03-14 14:12] MED LIST changes: +DUO-KAPS1 CAP PO
[2021-03-14 15:10] LABS: BASO % 0.6 % (0.0-2.0); EOS # 0.2 K/mm3 (0.0-0.7); EOS % 2.8 % (0-4.0); GRAN # 3.1 K/mm3 (1.4-6.5); GRAN % 57.9 % (42.2-75.2); HEMATOCRIT 37.4 % (37.0-47.0); HEMOGLOBIN 12.1 g/dl (12.5-16.0); LYMPH # 1.3 K/mm3 (1.2-3.4); LYMPH % 25.4 % (20.0-51.0); MEAN CELL VOLUME 94 fl (80.0-100.0); MEAN CORPUSCULAR HEMOGLOBIN 30 pg (27.0-31.0); MEAN CORPUSCULAR HGB CONC 32 g/dl (33.0-37.0); MEAN PLATELET VOLUME 10.3 fl (7.4-10.4); MONO # 0.7 K/mm3 (0.1-0.6); MONO % 13.1 % (1.7-9.3); PLATELET COUNT 234 K/mm3 (130-400); RED BLOOD COUNT 3.99 M/mm3 (4.10-5.30); REDCELL DISTRIBUTION WIDTH-CV 13.4 % (11.5-14.5)
[2021-03-14 15:21] LABS: PROTHROMBIN TIME 33.7 SECONDS (9.7-12.8)
[2021-03-14 15:35] LABS: ALBUMIN 3.3 gm/dL (3.4-4.8); BILIRUBIN,TOTAL 0.2 mg/dL (0.2-1.2); CALCIUM 9.4 mg/dL (8.4-10.2); CREATININE, serum 0.73 mg/dL (0.57-1.11); TOTAL PROTEIN 6.4 gm/dL (6.2-8.1)
[2021-03-14 16:11] VITALS: BP 134/64; PULSE 78; TEMP 98.5
== END 2021-03-14 16:15 | disposition home or self-care (01) ==
LOC: COL.ER 14:12
PROVIDERS: Nurse Practitioner Family
DX: R22.42 Localized swelling, mass and lump, left lower limb (principal); I48.91 Unspecified atrial fibrillation; I10 Essential (primary) hypertension; Z79.01 Long term (current) use of anticoagulants; Z79.899 Other long term (current) drug therapy

== ENCOUNTER 2021-08-01 01:34 | Emergency (ER) | payer MEDICARE, MEDICAID ==
[~2021-08-01] VITALS: Ht 165.1 cm; Wt 70.9 kg
[2021-08-01 01:42] VITALS: TEMP 98
[2021-08-01 02:09] LABS: BASO % 0.6 % (0.0-2.0); EOS # 0.2 K/mm3 (0.0-0.7); EOS % 4.3 % (0.0-4.0); GRAN # 2.5 K/mm3 (1.4-6.5); HEMOGLOBIN 13.3 g/dl (12.5-16.0); LYMPH # 1.6 K/mm3 (1.2-3.4); LYMPH % 30.8 % (20.0-51.0); MEAN CELL VOLUME 88 fl (80.0-100.0); MEAN CORPUSCULAR HEMOGLOBIN 29 pg (27-31); MEAN CORPUSCULAR HGB CONC 32 g/dl (33.0-37.0); MEAN PLATELET VOLUME 10.7 fl (7.4-10.4); MONO # 0.9 K/mm3 (0.1-0.6); MONO % 16.1 % (1.7-9.3); PLATELET COUNT 218 K/mm3 (130-400); RED BLOOD COUNT 4.65 M/mm3 (4.10-5.30); REDCELL DISTRIBUTION WIDTH-CV 14.6 % (11.5-14.5)
[2021-08-01 02:28] LABS: ALANINE AMINOTRANSFERASE 15 U/L (0-55); ALBUMIN 3.7 gm/dL (3.4-4.8); ALKALINE PHOSPHATASE 92 U/L (40-150); ANION GAP 11 mmol/L (7-16); AST,SGOT 21 U/L (5-34); BILIRUBIN,TOTAL 0.3 mg/dL (0.2-1.2); BLOOD UREA NITROGEN 21 mg/dL (10-20); CALCIUM 9.4 mg/dL (8.4-10.2); CARBON DIOXIDE 23 mmol/L (23-31); CHLORIDE 107 mmol/L (98-107); CREATININE, serum 0.81 mg/dL (0.57-1.11); GLUCOSE 102 mg/dL (70-99); POTASSIUM 4.2 mmol/L (3.5-4.5); SODIUM 141 mmol/L (136-145); TOTAL PROTEIN 6.5 gm/dL (6.2-8.1)
[2021-08-01 02:37] LABS: TROPONIN-I < 0.010 ng/mL (0.00-0.033)
[2021-08-01 03:39] VITALS: BP 112/46; PULSE 85
[2021-08-03] MEDS ORDERED: ZOVIRAX800 MG PO (20:27)
== END 2021-08-01 03:50 | disposition home or self-care (01) ==
LOC: COL.ER 01:34
PROVIDERS: Student in an Organized Health Care Education/Training Program
DX: I48.91 Unspecified atrial fibrillation (principal); Z79.01 Long term (current) use of anticoagulants

== ENCOUNTER 2023-02-05 16:26 | Inpatient (IN) | payer MEDICARE, MEDICAID ==
[~2023-02-05] VITALS: Ht 152.4 cm; Wt 71.3 kg
[~2023-02-05 16:26] MED LIST changes: +BENADRYL ALLERG25 M2 PO; +CEFTIN 250250 MG/TAB PO; +CORDARONE200 MG/TAB PO; +COUMADIN 2MG2 MG/TAB PO; +COZAAR 25MG25 MG/TAB PO; +FOSAMAX 35MG35 MG PO; +GLUCOSAMINE & C1 CA2 PO; +MELATONIN5 M1 PO; +NIZORAL SHAMPO120 M1 TP; +VITAMIND3 5000 PO; +ZOVIRAX800 MG PO
[2023-02-05 17:20] LABS: BASO % 0.6 % (0.0-2.0); EOS # 0.2 K/mm3 (0.0-0.7); GRAN # 3.9 K/mm3 (1.4-6.5); GRAN % 61.3 % (42.2-75.2); HEMOGLOBIN 11.6 g/dl (12.5-16.0); LYMPH # 1.1 K/mm3 (1.2-3.4); MEAN CELL VOLUME 94 fl (80.0-100.0); MEAN CORPUSCULAR HEMOGLOBIN 30 pg (27-31); MEAN CORPUSCULAR HGB CONC 32 g/dl (33.0-37.0); MEAN PLATELET VOLUME 9.9 fl (7.4-10.4); MONO # 1.1 K/mm3 (0.1-0.6); MONO % 17.6 % (1.7-9.3); PLATELET COUNT 225 K/mm3 (130-400); RED BLOOD COUNT 3.85 M/mm3 (4.10-5.30); REDCELL DISTRIBUTION WIDTH-CV 13.6 % (11.5-14.5)
[2023-02-05 17:28] LABS: HEMATOCRIT 36.3 % (37.0-47.0)
[2023-02-05 17:35] LABS: ALBUMIN 3.4 gm/dL (3.4-4.8); BILIRUBIN,TOTAL 0.5 mg/dL (0.2-1.2); CREATININE, serum 0.74 mg/dL (0.57-1.11); POTASSIUM 4.9 mmol/L (3.5-4.5); TOTAL PROTEIN 6.1 gm/dL (6.2-8.1)
[2023-02-05 17:47] LABS: INR 6.2 (0.8-3.0); PROTHROMBIN TIME 63.7 SECONDS (9.7-12.8)
[2023-02-05] MEDS ORDERED: ALA 100MG PO (18:49)
[2023-02-05] MEDS ORDERED: CALCIUM 600 MG1 EAC2 PO (18:52)
[2023-02-05] MEDS ORDERED: ELOCON0.11 TOP (18:53)
[2023-02-05] MEDS ORDERED: CERAVE SA CREA340 GM TP (18:54)
[2023-02-05] MEDS ORDERED: TYLENOL 325MG325 MG PO (18:55)
[2023-02-05] MEDS ORDERED: VITAMIND3 5000 PO (20:34)
[2023-02-05 21:22] VITALS: BP_SYST 161
[2023-02-05 21:35] VITALS: BP 161/57; PULSE 62; TEMP 97.7
--- NOTE | 2023-02-05 22:00 | NUR ---
Admitted to medical floor from ER- resident of [facility], Has had a couple falls in the past few days/also diagnosed with UTI 2 days ago- came to ER with pain from falls/left arm , neck and rib pain. Alert/oriented x4, son /daughter in law at bedside - Ania BAIG was here to write orders and talk with family/patient, Pt wished to be DNR , Purewick on, pt denies need for pain meds at this time but she will call when needed, Fall Risk in place, has significant bruising to left hip /outer thigh, also bruise/abrasion to head, bruise to neck, skin tear with bruising to left elbow- pts Coumadin on hold- tele on, IV fluids started NS at 50cc/hr.
[2023-02-05 23:40] VITALS: BP 168/49; PULSE 63; TEMP 98.2
[2023-02-06] VITALS (12 sets, daily range): BP systolic 137–177; BP diastolic 53–61; PULSE 60–72; TEMP 97.4–98.9
--- NOTE | 2023-02-06 05:37 | NUR ---
Did sleep well last night- Tele on,, Respiratory therapy was here to instruct on I.S,, SCD,s put on pt per orders. Did not require pain meds during the night.
[2023-02-06 05:41] LABS: BASO % 0.7 % (0.0-2.0); EOS # 0.1 K/mm3 (0.0-0.7); EOS % 2.1 % (0.0-4.0); GRAN # 3.8 K/mm3 (1.4-6.5); GRAN % 66.1 % (42.2-75.2); HEMOGLOBIN 10.3 g/dl (12.5-16.0); LYMPH # 0.8 K/mm3 (1.2-3.4); LYMPH % 14.1 % (20.0-51.0); MEAN CELL VOLUME 94 fl (80.0-100.0); MEAN CORPUSCULAR HEMOGLOBIN 31 pg (27-31); MEAN CORPUSCULAR HGB CONC 33 g/dl (33.0-37.0); MEAN PLATELET VOLUME 10.5 fl (7.4-10.4); MONO % 16.7 % (1.7-9.3); PLATELET COUNT 203 K/mm3 (130-400); RED BLOOD COUNT 3.31 M/mm3 (4.10-5.30); REDCELL DISTRIBUTION WIDTH-CV 13.5 % (11.5-14.5)
[2023-02-06 06:00] LABS: INR 1.5 (0.8-3.0); PROTHROMBIN TIME 15.8 SECONDS (9.7-12.8)
[2023-02-06 06:19] LABS: CALCIUM 8.4 mg/dL (8.4-10.2); CREATININE, serum 0.64 mg/dL (0.57-1.11); POTASSIUM 4.5 mmol/L (3.5-4.5)
[2023-02-06 08:18] LABS: HEMOGLOBIN 10.6 g/dl (12.5-16.0)
[2023-02-06 08:27] LABS: HEMATOCRIT 32.3 % (37.0-47.0)
--- NOTE | 2023-02-06 09:57 | NUR ---
Initial visit; Patient is experience a second fall, this time worse than the first. She expects a long recovery. Tonie is very sweet and thanked Pyrometallurgical Engineer for visiting her and offering God's blessings.
--- NOTE | 2023-02-06 13:05 | NUR ---
Assessment completed this am. Pt alert and oriente x4. Denies pain at rest. Reports pain in rib and hematomas to left side with movement only. Declines offer for Tylenol. Sitting up in chair with assistance from therapy. Fall precautions in place. Specialty Mattress placed for assist in comfort while resting in bed. Pt reported discomfort with purewick during night shift supervisor and requested it be removed. This nurse and the pct put moisture barrier on new purewick and replaced purewick- pt has denied discomfort.
--- NOTE | 2023-02-06 15:26 | NUR ---
Bleach Supervisor met with patient to discuss discharge planning. Patient lives at [facility] and sees Dr. Ruiz for primary care. Patient has medications delivered to her [facility] from [place] and she advised staff there administer medications to her. Patient uses a walker for ambulation and reported she has been needing more assistance with ADLS lately. Patient has DPOA-HC in EMR which designates her late , Zachery and son, Jg. Patient advised Jg will be here over lunch and would like to be involved in discharge planning. SW discussed recommendation for SNF and patient is agreement. SW provided Medicare.gov list of SNF options. SW followed up later when Jg was at bedside. Patient advised her first preference is [facility] and second preference is [facility]. SW presented Choice Form to patient and she provided signature. SW placed form in chart and provided copy to patient. YADIEL contacted both [facility] and [facility], then provided referral. YADIEL spoke with Nanette, Clin Application Specialist with patient's primary insurance plan (#[phone]) to provide update. Nanette advised [facility] is not in network but that they can do a contract with them. [facility] is in network. Discharge Plan: SNF
--- NOTE | 2023-02-06 16:07 | NUR ---
Ring Spinner was contacted by patient's son, Jg and Marquise, Director of [facility] was also on the call. YADIEL provided update to Marquise on discharge planning. Jg requested an additional referral be sent to [facility] as that would likely be patient's second preference and [facility] would be third preference. YADIEL sent referral to Brian at [facility] via secure email.
--- NOTE | 2023-02-06 19:27 | NUR ---
Pt sat up in chair all day, per patient preference. Pt sitting on gel pad brought in by family. Family at bedside at this time.
--- NOTE | 2023-02-06 20:30 | NUR ---
Initial shift assessment done- denies pain when at rest- only in pain when she moves- did give Tylenol before getting up to BSC,,, did take 2 assists/gait belt and walker to pivot to BSC-- Tele on NSR, Was up in the chair initially then BSC, then to bed for the night-- will use the purewick for the night-- pt agrees, Is alert/oriented x4 nut at times forgetful? Fall Risk in place. Does have the significant bruise to left hip/thigh, warm,firm. also bruise to neck and skin tears to bilateral arms- VSS
[2023-02-07] VITALS (11 sets, daily range): BP systolic 127–155; BP diastolic 50–79; PULSE 59–64; TEMP 97.7–98.4
[2023-02-07 05:42] LABS: MEAN CELL VOLUME 92 fl (80.0-100.0); MEAN CORPUSCULAR HGB CONC 34 g/dl (33.0-37.0); MEAN PLATELET VOLUME 10.5 fl (7.4-10.4); PLATELET COUNT 196 K/mm3 (130-400); RED BLOOD COUNT 3.17 M/mm3 (4.10-5.30); REDCELL DISTRIBUTION WIDTH-CV 13.2 % (11.5-14.5)
[2023-02-07 05:46] LABS: HEMATOCRIT 29.3 % (37.0-47.0); HEMOGLOBIN 9.9 g/dl (12.5-16.0); MEAN CORPUSCULAR HEMOGLOBIN 31 pg (27-31)
[2023-02-07 05:51] LABS: INR 1.2 (0.8-3.0); PROTHROMBIN TIME 12.7 SECONDS (9.7-12.8)
[2023-02-07 06:12] LABS: ALBUMIN 2.7 gm/dL (3.4-4.8); CALCIUM 8.6 mg/dL (8.4-10.2); CREATININE, serum 0.62 mg/dL (0.57-1.11); PHOSPHOROUS 2.8 mg/dL (2.3-4.7); POTASSIUM 4.5 mmol/L (3.5-4.5)
--- NOTE | 2023-02-07 06:30 | NUR ---
did sleep very well last night- no requests throughout the night, VSS, did have the purewick on all night-has has about 500cc out this shift per the purewick.
--- NOTE | 2023-02-07 10:08 | NUR ---
SHIFT ASSESSMENT COMPLETED. PATIENT IS ALERT AND ORIENTED TO SELF. HAD SOME CONFUSION TO PLACE AND TIME. PATIENT SITTING IN CHAIR FINISHING UP BREAKFAST. MEDS GIVEN PER EMAR. PATIENT HAS A PUREWICK INPLACE. PLACED A LIDOCAINE PATCH TO HER LEFT RIB. CALL LIGHT WITHIN REACH.BED/CHAIR ALARM INPLACE.
--- NOTE | 2023-02-07 16:54 | NUR ---
Hospice Executive Director recieved acceptance from both [facility] and [facility]. YADIEL spoke with Tiana at [facility] who advised they can clinically accept and have submitted to patient's insurance for authorization, but that the insurance plan indicated they have up to 14 days to decide on auth. YADIEL contacted Nanette and requested a more expidited process for auth. At this time, despite patient's preference for [facility], Nnaette advised the Dept. may chose to deny auth for [facility] and approve [facility] as they are the in network facility. Nanette advised the (Utilization Review) team does not work on the weekends. YADIEL met with patient with Jg on speakerphone to provide update. YADIEL advised patient will be discharged to the facility that auth is given to. Patient verbalized understanding and is agreeable. YADIEL will await authorization determination. Discharge Plan: [facility] vs [facility], pending authorization determination
--- NOTE | 2023-02-07 18:09 | NUR ---
PATIENT HAD AN UNEVENTFUL DAY. PATIENT WAS PLEASANT THROUGHOUT SHIFT.PATIENT HAD BEEN FEELING COLD THEREFORE A WARM BLANKET WAS GIVEN AND SHE EXPRESSED SHE FELT WARMER AFTER THAT. PILLOWS WERE PLACED UNDER HER HEELS FOR COMFORT. PATIENT HAS BEEN EATING WELL. FAMILY AT BEDSIDE.
[2023-02-08] VITALS (9 sets, daily range): BP systolic 139–155; BP diastolic 32–64; PULSE 59–66; TEMP 97.7–98.5
--- NOTE | 2023-02-08 02:26 | NUR ---
NURSING SHIFT ASSESSMENT COMPLETED. THE PATIENT WAS ALERT AND ORIENTED BUT FORGETFUL. THE PATIENT REPORTED CONSTIPATION SO THE SUPERVISOR CUSTOMER COMPLAINT SERVICE PROVIDER WAS CONTACTED AND NEW ORDERS RECEIVED. THE PLAN OF CARE AND EVENING MEDICATIONS REVIEWED. CALL LIGHT WITHIN REACH, BED ALARM ON, BED IN LOW POSITION.
[2023-02-08 05:40] LABS: ALBUMIN 2.8 gm/dL (3.4-4.8); CALCIUM 8.8 mg/dL (8.4-10.2); CREATININE, serum 0.66 mg/dL (0.57-1.11); PHOSPHOROUS 3.1 mg/dL (2.3-4.7); POTASSIUM 4.6 mmol/L (3.5-4.5)
[2023-02-08 05:44] LABS: MEAN CELL VOLUME 94 fl (80.0-100.0); MEAN CORPUSCULAR HEMOGLOBIN 31 pg (27-31); MEAN CORPUSCULAR HGB CONC 33 g/dl (33.0-37.0); MEAN PLATELET VOLUME 10.4 fl (7.4-10.4); PLATELET COUNT 223 K/mm3 (130-400); RED BLOOD COUNT 3.22 M/mm3 (4.10-5.30); REDCELL DISTRIBUTION WIDTH-CV 13.5 % (11.5-14.5)
[2023-02-08 05:48] LABS: HEMATOCRIT 30.4 % (37.0-47.0)
--- NOTE | 2023-02-08 08:55 | NUR ---
personal support worker was notified by nursing that [facility] contacted them regarding patient's insurance authorization for [facility]. Patient was approved for [facility] from the timeframe 02/10/23 to 02/16. personal support worker notified [facility] whom expressed they would look for the authorization on Friday but as long as they have that authorization they could clinically accept patient. personal support worker notified Jg, patient's son, regarding insurance authorization for [facility]. personal support worker expressed as long as [facility] has officially received the authorization they would be able to accept patient as early as Friday if medically cleared. personal support worker notified patient whom expressed her son had given her a quick call to give her the news. Patient was excited. Discharge Plan: [facility]
[2023-02-08 10:13] LABS: INR 1.2 (0.8-3.0); PROTHROMBIN TIME 13.5 SECONDS (9.7-12.8)
--- NOTE | 2023-02-08 12:04 | NUR ---
Cloud Engineer rounds: Cloud Engineer visit attempted; CORPORATE REAL ESTATE MANAGER was with Patient.
[2023-02-09] VITALS (10 sets, daily range): BP systolic 148–174; BP diastolic 56–68; PULSE 61–76; TEMP 98.1–98.7
--- NOTE | 2023-02-09 03:30 | NUR ---
NURSING SHIFT ASSESSMENT COMPLETED. THE PATIENT WAS ALERT AND ORIENTED, BUT FORGETFUL. THE PATIENT DENIED NEEDS DURING THE ASSESSMENT. NO S/S OF DISTRESS NOTED. BED IN LOW POSITION, CALL LIGHT WITHIN REACH, BED ALARM ON.
[2023-02-09 06:07] LABS: BASO % 0.8 % (0.0-2.0); EOS # 0.3 K/mm3 (0.0-0.7); GRAN % 57.4 % (42.2-75.2); HEMOGLOBIN 10.8 g/dl (12.5-16.0); LYMPH # 1.1 K/mm3 (1.2-3.4); LYMPH % 20.6 % (20.0-51.0); MEAN CELL VOLUME 92 fl (80.0-100.0); MEAN CORPUSCULAR HEMOGLOBIN 31 pg (27-31); MEAN CORPUSCULAR HGB CONC 34 g/dl (33.0-37.0); MEAN PLATELET VOLUME 10.2 fl (7.4-10.4); MONO # 0.8 K/mm3 (0.1-0.6); PLATELET COUNT 248 K/mm3 (130-400); RED BLOOD COUNT 3.46 M/mm3 (4.10-5.30); REDCELL DISTRIBUTION WIDTH-CV 13.4 % (11.5-14.5)
[2023-02-09 06:08] LABS: HEMATOCRIT 31.9 % (37.0-47.0)
[2023-02-09 06:18] LABS: INR 1.3 (0.8-3.0); PROTHROMBIN TIME 13.9 SECONDS (9.7-12.8)
[2023-02-09 06:23] LABS: CALCIUM 8.8 mg/dL (8.4-10.2); CREATININE, serum 0.64 mg/dL (0.57-1.11); POTASSIUM 4.4 mmol/L (3.5-4.5)
--- NOTE | 2023-02-09 07:34 | NUR ---
Warfarin Follow-up Pharmacy Note Current regimen: Home regimen of Warfarin 4 mg [id number] and 2 mg SuTuTh LABS: INR 1.3 Changes in therapy: Will give increased dose of Warfarin 4 mg po x1 dose tonight. Pharmacy will continue to closely monitor daily INR levels.
--- NOTE | 2023-02-09 09:26 | NUR ---
PATIENT ALERT TO SELF AND PLACE. SOME FORGETFULNESS AT TIMES. PATIETN RESTING IN BED, PLEASANT ATTITUDE. DENIED PAIN AT THIS TIME. PATIENT CALL LIGHT WITHIN REACH. PUREWICK ACTIVE. BED AT LOWEST POSITION.
--- NOTE | 2023-02-09 15:04 | NUR ---
Medical Communication Specialist faxed clinical updates to Tiana at [facility]. SW also checked in with patient who expressed she is happy that she will likely get to go to [facility] for rehab.
--- NOTE | 2023-02-09 17:28 | NUR ---
PATIENT HAD SOME ELEVATED BLOOD PRESSURE READING.PATIENT REPORTS FEELING WELL DR WAS NOTIFIED.
[2023-02-10] VITALS (683 sets, daily range): BP systolic 52–199; BP diastolic 41–89; PULSE 52–61; TEMP 97.4–98.2; O2SAT 81–99
[2023-02-10 06:15] LABS: INR 1.5 (0.8-3.0); PROTHROMBIN TIME 15.9 SECONDS (9.7-12.8)
[2023-02-10 06:34] LABS: BASO % 0.7 % (0.0-2.0); EOS # 0.3 K/mm3 (0.0-0.7); EOS % 5.5 % (0.0-4.0); GRAN # 3.4 K/mm3 (1.4-6.5); GRAN % 62.5 % (42.2-75.2); LYMPH # 0.8 K/mm3 (1.2-3.4); MEAN CELL VOLUME 94 fl (80.0-100.0); MEAN CORPUSCULAR HEMOGLOBIN 31 pg (27-31); MEAN CORPUSCULAR HGB CONC 33 g/dl (33.0-37.0); MEAN PLATELET VOLUME 10.2 fl (7.4-10.4); MONO # 0.9 K/mm3 (0.1-0.6); MONO % 16.1 % (1.7-9.3); PLATELET COUNT 268 K/mm3 (130-400); RED BLOOD COUNT 3.57 M/mm3 (4.10-5.30); REDCELL DISTRIBUTION WIDTH-CV 13.6 % (11.5-14.5)
[2023-02-10 06:37] LABS: HEMATOCRIT 33.6 % (37.0-47.0)
[2023-02-10 06:39] LABS: CALCIUM 8.9 mg/dL (8.4-10.2); CREATININE, serum 0.72 mg/dL (0.57-1.11); POTASSIUM 4.4 mmol/L (3.5-4.5)
--- NOTE | 2023-02-10 08:40 | NUR ---
PT AWAKE IN CHAIR UPON ENTERING. ASSESSMENT DONE, MEDS GIVEN WITHOUT DIFFICULTY. PT HAS BRUISING FROM LEFT NECK DOWN TO LEFT THIGH FROM PREVIOUS FALL. LIDOCAINE PATCH APPLIED UNDER LEFT BREAST. SKIN TEAR TO LEFT ELBOW DRESSED WITH STERI STRIPS AND MARIOLA WRAP. SKIN TEAR TO RIGHT ELBOW COVERED WITH NONSTICK DRESSING, DRESSING CHANGED THIS AM. PT DENIES NEEDS AT THIS TIME. CHAIR ALARM ON AND CALL LIGHT IN REACH.
--- NOTE | 2023-02-10 11:28 | NUR ---
JACOBY, coRank CALLED AND NOTIFIED THIS NURSE OF PTS SUSTAINED HEARTRATE IN THE LOW 40S. UPON ENTERING THE ROOM CAROLANN, PCT BY PT AND PT IS IN CHAIR NODDING OFF AND UNRESPONSIVE. HOSPITALIST IMMEDIATLEY NOTIFIED. VITALS TAKEN AND PT IS INITIALLY HYPOTENSIVE AND VERBAL ORDER FROM DR RUTH FOR A BOLUS OF NORMAL SALINE. IZZY RN AT BEDSIDE. PT IS INITIALLY INCOHERENT AND THEN RESPONDING COHERENTLY WITH EYES CLOSED. PT REPORTS FEELING DIZZY AND NAUSEOUS REQUESTING SOMEONE TO FAN HER. NEW SET OF VITALS TAKEN AND WITHIN NORMAL LIMITS. RESPIRATORY THERAPY AT BEDSIDE FOR EKG. PHYSICAL THERAPY AT BEDSIDE ASSISTING TO TRANSFER PT TO BED, HEAD OF THE BED UP ELEVATED AND PT RESTING WITH EYES CLOSED. CARDIOLOGY CONSULTED AND PT STILL REPORTING NAUSEA. FAMILY AT BEDSIDE COMFORTING PT AND UPDATED ON CURRENT STATUS. PT HAS NO OBVIOUS NEEDS AT THIS TIME AND RESTING IN BED WITH EYES CLOSED.
--- NOTE | 2023-02-10 12:33 | NUR ---
RECEIVED REPORT FROM Reid. PT WHEELED TO ROOM IN BED AND TRANSFERED TO ICU BED WITH STAFF ASSIST X3. VS WNL, PT A&O X3, AND POSITIONED DIRECTED BY PATIENT. ALL QUESTIONS ANSWERED, CALL LIGHT WITHIN REACH, PT DENIES ADDITIONAL NEEDS AT THIS TIME.
--- NOTE | 2023-02-10 12:49 | NUR ---
PT TRANSFERRED TO ICU 8
[2023-02-10 12:50] LABS: MAGNESIUM 2.1 mg/dL (1.6-2.6)
[2023-02-10 12:56] LABS: TROPONIN-I 0.012 ng/mL (0.00-0.033)
[2023-02-10] MEDS ORDERED: LASIX 20MG TABL20 MG PO (16:33)
--- NOTE | 2023-02-10 16:52 | NUR ---
structural steel worker apprentice was notified patient would be moving to the ICU. JOSH Jackson, provided updates to family. structural steel worker apprentice updated insurance nurse home health care case manager and Steve on patient's status. Social work will continue to follow.
--- NOTE | 2023-02-10 19:15 | NUR ---
Received report from SHAD Coker, and SHAD Cruz.
--- NOTE | 2023-02-10 19:50 | NUR ---
Patient resting quietly in bed watching TV. She has two visitors at bedside. SBPs trending 180-190s over last 30 minutes or so; will administer PRN hydralazine according to orders in EMAR. All other vitals within normal limits. Patient denies any pain or discomfort at this time.
[2023-02-11] VITALS (545 sets, daily range): BP systolic 91–179; BP diastolic 49–91; PULSE 54–67; TEMP 97.6–98.3; O2SAT 77–99
[2023-02-11 07:04] LABS: INR 1.8 (0.8-3.0); PROTHROMBIN TIME 19.7 SECONDS (9.7-12.8)
[2023-02-11 08:51] LABS: BASO % 0.6 % (0.0-2.0); EOS # 0.2 K/mm3 (0.0-0.7); EOS % 3.7 % (0.0-4.0); GRAN # 3.7 K/mm3 (1.4-6.5); HEMOGLOBIN 11.4 g/dl (12.5-16.0); LYMPH # 0.7 K/mm3 (1.2-3.4); LYMPH % 13.3 % (20.0-51.0); MEAN CELL VOLUME 94 fl (80.0-100.0); MEAN CORPUSCULAR HEMOGLOBIN 31 pg (27-31); MEAN CORPUSCULAR HGB CONC 33 g/dl (33.0-37.0); MEAN PLATELET VOLUME 9.6 fl (7.4-10.4); MONO # 0.5 K/mm3 (0.1-0.6); PLATELET COUNT 281 K/mm3 (130-400); RED BLOOD COUNT 3.65 M/mm3 (4.10-5.30); REDCELL DISTRIBUTION WIDTH-CV 13.6 % (11.5-14.5)
[2023-02-11 08:53] LABS: HEMATOCRIT 34.4 % (37.0-47.0)
[2023-02-11 09:07] LABS: BILIRUBIN,TOTAL 1.1 mg/dL (0.2-1.2); CALCIUM 8.8 mg/dL (8.4-10.2); CREATININE, serum 0.74 mg/dL (0.57-1.11); MAGNESIUM 1.9 mg/dL (1.6-2.6); POTASSIUM 4.2 mmol/L (3.5-4.5); TOTAL PROTEIN 5.7 gm/dL (6.2-8.1)
--- NOTE | 2023-02-11 11:03 | NUR ---
SHRIMP BOAT CAPTAIN reviewed pt's clinical record during rounds, plan is for pt to transfer back to the floor today and be discharge to [facility] tomorrow. SHRIMP BOAT CAPTAIN attempted to call equipment coordinator, Nathalia @ [facility], # [phone], this morning to confirm time for tomorrow, no anwser, left VM message. SHRIMP BOAT CAPTAIN faxed updated clinicals to the equipment coordinator this morning @ fax# [phone]. No othe concerns noted. Will continune to follow and facilitate discharge planning.
--- NOTE | 2023-02-11 14:45 | NUR ---
REPORT GIVEN TO SHAD RAGSDALE. PT IS STABLE ON ROUNDS. RESPIRATIONS EVEN AND UNLABORED. NO SIGN OF DISTRESS AT THIS TIME.
--- NOTE | 2023-02-11 21:00 | NUR ---
Patient high fowlers in bed. Denies any pain at this time. Assessment complete. IV flushes with no complications. Denies any pain at this time. Call light and personal items in reach. Bed in low positon and bed alarm on.
[2023-02-12] VITALS (7 sets, daily range): BP systolic 138–148; BP diastolic 49–59; PULSE 53–55; TEMP 97.7–98.2
[2023-02-12 05:16] LABS: INR 2.2 (0.8-3.0); PROTHROMBIN TIME 23.9 SECONDS (9.7-12.8)
[2023-02-12 05:38] LABS: CALCIUM 8.9 mg/dL (8.4-10.2); CREATININE, serum 0.7 mg/dL (0.57-1.11); POTASSIUM 4.2 mmol/L (3.5-4.5)
--- NOTE | 2023-02-12 06:00 | NUR ---
Patient resting in bed. Denies any pain or needs at this time. Call light and personal items in reach. Bed in low posion and bed alarm on.
--- NOTE | 2023-02-12 09:00 | NUR ---
SHIFT ASSESSMENT COMPLETED. ALERT AND ORIENTED X3. PATIENT IS SITTING IN BED. PLEASANT REPORTS BEING SLEEPY THIS MORNING BECAUSE SHE DID NOT GET GOOD SLEEP. PATIENT REPORTED FEELING NAUSEA AND PRN WAS GIVEN PER EMAR. PATIENT RESTING IN ROOM. CALL LIGHT WITHIN REACH. BED AT LOWEST POSITION.
[2023-02-12] MEDS ORDERED: ZOFRAN ODT4 MG PO (10:21)
--- NOTE | 2023-02-12 13:20 | NUR ---
PATIENT DISCHARGED TO SKILLED FACILITY. TRANSPORTED BY [facility] STAFF. PATIENT IV DISCONTINUE. PATIENT VITAL SIGNS STABLE UPON DISCHARGE.
--- NOTE | 2023-02-12 16:27 | NUR ---
box worker faxed clinical updates to Tiana Pan at [facility]. box worker was notified patient was medically stable for discharge to SNF. box worker contacted [facility] and notified them. [facility] will review the updates and follow up with manager social media. box worker was notified [facility] is able to accept and can vegetable picker at 1:30 pm. box worker notified assistant community director and patient's son. box worker notified Brianna, home health care case manager through Medicare, and faxed clinical updates and discharge packet to F# [phone]. box worker faxed discharge packet to [facility]. box worker met with patient's son/DPOA-HC, Jimmy, to review important message from Medicare. Jimmy understood the information and signed on behalf of the patient as her DPOA-HC. box worker made a copy of the signed form and placed original in the patient's file. box worker met with patient and reviewed the important message from Medicare and expressed her son signed for her. Patient expressed that works for her and she did not have any questions or concerns. Patient understood her rights. Discharge Plan: [facility] - [facility]
== END 2023-02-12 13:20 | DRG 315 ==
LOC: COL.ER 16:26 → MEDICAL 18:40 → ICU 02-10 12:31 → MEDICAL 02-11 14:54
PROVIDERS: Emergency Medicine; Hospitalist; Internal Medicine; Nurse Practitioner Family; Physician Assistant; ADMIT Internal Medicine
DX: I95.9 Hypotension, unspecified (principal); D68.32 Hemorrhagic disorder due to extrinsic circulating anticoagulants; E87.1 Hypo-osmolality and hyponatremia; I48.91 Unspecified atrial fibrillation; I10 Essential (primary) hypertension; I44.0 Atrioventricular block, first degree; K44.9 Diaphragmatic hernia without obstruction or gangrene; M19.90 Unspecified osteoarthritis, unspecified site; S70.12XD Contusion of left thigh, subsequent encounter; S22.32XD Fracture of one rib, left side, subsequent encounter for fracture with routine healing; E87.5 Hyperkalemia; D64.9 Anemia, unspecified; M81.0 Age-related osteoporosis without current pathological fracture; W19.XXXD Unspecified fall, subsequent encounter; Z79.01 Long term (current) use of anticoagulants; Z88.1 Allergy status to other antibiotic agents; Z85.3 Personal history of malignant neoplasm of breast; Z88.0 Allergy status to penicillin
CPT/HCPCS: A9284; J0360; J2405; J3430; J7030

== ENCOUNTER 2023-04-17 05:41 | Inpatient (IN) | payer OTHER, MEDICAID ==
[~2023-04-17] VITALS: Ht 165.2 cm; Wt 80.0 kg
[~2023-04-17 05:41] MED LIST changes: +ALA 100MG PO; +CALCIUM 600 MG1 EAC2 PO; +CERAVE SA CREA340 GM TP; +COUMADIN 1MG1 MG/TAB PO; -COUMADIN 2MG2 MG/TAB PO; +ELOCON0.11 TOP; +LASIX 20MG TABL20 MG PO; +TYLENOL 325MG325 MG PO; +ZOFRAN ODT4 MG PO
[2023-05-06] VITALS (8 sets, daily range): BP systolic 148–178; BP diastolic 70–79; PULSE 56–71; TEMP 97.5–98.1
[2023-05-06 10:52] LABS: CALCIUM 9.3 mg/dL (8.4-10.2); CREATININE, serum 0.82 mg/dL (0.57-1.11); POTASSIUM 4.3 mmol/L (3.5-4.5)
[2023-05-06] MEDS ORDERED: GLUCOSAMINE & C1 CA2 PO (11:38)
[2023-05-06] MEDS ORDERED: SALONPAS1 EACH TP (12:35)
[2023-05-06] MEDS ORDERED: ZOFRAN ODT4 MG PO (12:37)
--- NOTE | 2023-05-06 16:18 | NUR ---
rock worker was contacted by [facility], home health agency. SW was notified patient is currently receiving PT and nursing through their agency and they would like to receive updates tomorrow. YADIEL will continue to follow patient's care and provide updates to [facility].
--- NOTE | 2023-05-06 19:00 | NUR ---
Patient resting in bed with family at the bedside. Denies any pain at this time. Questions answered. Assissted patient to bathroom. Assessment complete. IV in left AC flushes easily with no complications. Call light and personal items in reach. Bed in low positition and bed alarm on.
--- NOTE | 2023-05-06 21:00 | NUR ---
Patient ambulated to surgical nursing station to medicial nursing station and back to her room with good effort and no shortness of breath.
[2023-05-07] VITALS (15 sets, daily range): BP systolic 155–185; BP diastolic 70–73; PULSE 60–79; TEMP 97.3–98.4
--- NOTE | 2023-05-07 06:30 | NUR ---
Patient resting in bed. Respirations even and unlabored. No signs of pain at this time. Struggled to keep patients blood pressure down last night, will address further this morning. Call light and personal items in reach. Bed in low position and bed alarm on.
[2023-05-07 07:05] LABS: INR 1.9 (0.8-3.0); PROTHROMBIN TIME 20.2 SECONDS (9.7-12.8)
[2023-05-07 07:13] LABS: CALCIUM 9.2 mg/dL (8.4-10.2); CREATININE, serum 0.77 mg/dL (0.57-1.11); POTASSIUM 4.1 mmol/L (3.5-4.5)
--- NOTE | 2023-05-07 08:30 | NUR ---
Patient is resting in bed, alert and oriented x4, states some pain in her hills and toes. Pt was transfered to the chair and elevated her legs. Assessment completed, meds provided. No further needs at this time. Call light within reach.
--- NOTE | 2023-05-07 09:47 | NUR ---
Initial visit; Patient visited with Retail Stock Clerk about her feet being bothered by the blankets lying over them at night. talked with Tonie about her Neuropathy and and mentioned to Tonie to pay close attention to her feet and talk with her DrEbony about them when they are bothering her. Tonie thanked Retail Stock Clerk for visit and offering God's blessings.
--- NOTE | 2023-05-07 13:48 | NUR ---
political worker was notified patient would like to speak with the administrator social welfare with her family members. SW met with patient whom expressed her son would like to ask questions about her DNR. Patient does not want chest compressions but would be okay with intubation and electrical cardioversion. They wanted to know how to implement this into her DNR. SW will follow up with patient's hospital physician. SW completed her care assessment while meeting with patient and her son, whom was via telephone. Patient lives in [place] at [facility] and [facility]. PCP is Dr. Ruiz, pharmacy is [facility]. Patient's insurance is [employer] and Medicaid [place]. Patient has a DPOA-HC on file stating Hay is her primary. Patient verified Hay is her but he a couple years ago. Patient's DPOA-HC states Chacho (son) is her secondary and Chacho's , Chelle is alternate after Chacho. Chacho P# [phone]. Patient utilizes a walker at home and reports she is mainly independent but does have someone wait in the room next to her bathroom while she is showering as she is worried about falling. Patient would like to return home with her home health services. Discharge Plan: Home with Home Health
--- NOTE | 2023-05-07 15:26 | NUR ---
Patient continues with hypertension, reporete to MICHEL Chang, stated he will check pt information for adjustments.
--- NOTE | 2023-05-07 18:49 | NUR ---
Patient states feeling ok, denies any chest pain or lightheadedness. Aware of HTN. Report will be given to night RN.
[2023-05-08] VITALS (16 sets, daily range): BP systolic 100–172; BP diastolic 56–77; PULSE 55–66; TEMP 97.5–98
--- NOTE | 2023-05-08 01:08 | NUR ---
AFTER RECIEVEING REPORT FROM NIGHT RN, SAMI, FOUND PT TO BE ALERT AND ORIENTED X4. PT SITTING UP IN RECLINER BECUSE IT IS MORE COMFORTABLE TO HER PER REPORT. PT AMBULATES WITH FWW AND ONE PERSON ASSIST. INT TO LEFT A/C FLUSHES WELL. VITAL SIGNS STABLE, SHIFT ASSESSMENT COMPLETE. NO NEW ISSUES REPORTED, DENIES PAIN AT THIS TIME. EVEN, UNLABORED RESPR. DENIES FURTHER NEEDS AT THIS TIME. CALL LIGHT WITHIN REACH.
[2023-05-08 07:23] LABS: CALCIUM 9.3 mg/dL (8.4-10.2); CREATININE, serum 0.77 mg/dL (0.57-1.11); MAGNESIUM 2.1 mg/dL (1.6-2.6); POTASSIUM 4.2 mmol/L (3.5-4.5)
--- NOTE | 2023-05-08 10:44 | NUR ---
Patient alert and oriented x4, denies pain this morning. Shift assessment complete, heart rate regular and lung sounds clear. Pitting edema noted to bilateral lower extremities, right side greater than left. Patient ambulating to bathroom and around room, gait is steady with SBA and walker. Tolerating PT/OT well. Appetite adequate. Patient currently in recliner with chair alarm in place and call light within reach. All needs met at this time.
--- NOTE | 2023-05-08 16:54 | NUR ---
putty and patch worker was contacted by [facility] regarding patient's potential discharge. F: [phone] and P: [phone]. [facility] would like updates and discharge orders when she is ready for discharge. YADIEL Murray faxed clinical updates to [facility]. Discharge Plan: [place] (Home) with [facility]
--- NOTE | 2023-05-08 18:15 | NUR ---
Patient remains stable. Ambulates often, gait steady. Denies pain or discomfort. Tolerating food and fluids well. Patient in recliner with call light in reach, all needs met at this time.
--- NOTE | 2023-05-08 21:15 | NUR ---
Patient sitting on edge of bed. Denies any pain or needs at this time. Assessment complete. IV in left hand flushes easily with no complications. Call light and personal items in reach. Bed in low position and bed alarm on.
[2023-05-09 01:02] VITALS: BP_SYST 172
[2023-05-09 01:46] VITALS: BP 145/53
[2023-05-09 03:16] VITALS: BP 153/79; PULSE 60; TEMP 98.4
[2023-05-09 04:38] VITALS: BP_SYST 153
--- NOTE | 2023-05-09 06:15 | NUR ---
Patient resting in bed with eyes closed. Respirations even and unlabored. Patient's last QTc measured at 522, will pass on to day shift nurse since next dose of Tikosyn isn't due until 0900. No other changes over night. Call light and personal items in reach. Bed in low position and bed alarm on.
[2023-05-09 07:21] LABS: CREATININE, serum 0.74 mg/dL (0.57-1.11); MAGNESIUM 2.1 mg/dL (1.6-2.6); POTASSIUM 4.3 mmol/L (3.5-4.5)
[2023-05-09 08:14] VITALS: BP 163/88; PULSE 63; TEMP 97.6
[2023-05-09] MEDS ORDERED: TIKOSYN0.25 MG PO (08:49)
[2023-05-09] MEDS ORDERED: COZAAR 50MG50 MG/TAB PO (08:50)
[2023-05-09 08:52] VITALS: BP_SYST 163
--- NOTE | 2023-05-09 10:28 | NUR ---
Patient alert and oriented x4. Shift assessment complete, no new variances noted. EKG from last night showed a QTc of >500, Dr. Russell called this morning and notified. Repeat EKG done this morning and showed a QTc of 474. Tikosyn administered following morning EKG. Patient denies pain or discomfort. Patient currently in bed with call light in reach, all needs met at this time.
--- NOTE | 2023-05-09 10:42 | NUR ---
SW Student completed Medicare IM form with patient at bedside. Copy made for patient and original placed in patient's chart.
--- NOTE | 2023-05-09 12:00 | NUR ---
Discharge instructions discussed with patient and patient's son including new medications/changes to medications, follow-up appointments, and education packets. Patient and family verbalized understanding. IV discontinued to right hand with no complications. Telemetry off. Patient escorted out by family and staff via wheelchair.
--- NOTE | 2023-05-09 12:27 | NUR ---
terrazzo worker helper was notified patient is medically stable for discharge. SW notified [facility] and faxed clincial updates and discharge orders to [facility] and [facility]. Discharge plan: Home with Home Health
== END 2023-05-09 12:02 | disposition home or self-care (01) | DRG 310 ==
LOC: MEDICAL 05-06 05:40
PROVIDERS: ADMIT Internal Medicine Interventional Cardiology
DX: I48.0 Paroxysmal atrial fibrillation (principal); I10 Essential (primary) hypertension; Z66 Do not resuscitate; Z85.3 Personal history of malignant neoplasm of breast; Z91.81 History of falling; Z88.6 Allergy status to analgesic agent; Z88.1 Allergy status to other antibiotic agents; Z88.0 Allergy status to penicillin; Z88.8 Allergy status to other drugs, medicaments and biological substances; Z23 Encounter for immunization

== ENCOUNTER 2023-05-26 05:30 | Observation (INO) | payer OTHER, MEDICAID ==
[~2023-05-26] VITALS: Ht 165.1 cm; Wt 77.6 kg
[2023-05-26] VITALS (9 sets, daily range): BP systolic 131–171; BP diastolic 43–68; PULSE 47–59; TEMP 97.3–99.4
[~2023-05-26 05:30] MED LIST changes: +COZAAR 50MG50 MG/TAB PO; +SALONPAS1 EACH TP; +TIKOSYN0.25 MG PO
[2023-05-26 05:51] LABS: BASO # 0.1 K/mm3 (0.0-0.2); EOS # 0.3 K/mm3 (0.0-0.7); EOS % 5.6 % (0.0-4.0); GRAN # 2.3 K/mm3 (1.4-6.5); GRAN % 46.3 % (42.2-75.2); HEMATOCRIT 43.2 % (37.0-47.0); LYMPH # 1.5 K/mm3 (1.2-3.4); LYMPH % 29.4 % (20.0-51.0); MEAN CELL VOLUME 92 fl (80.0-100.0); MEAN CORPUSCULAR HEMOGLOBIN 30 pg (27-31); MEAN CORPUSCULAR HGB CONC 32 g/dl (33.0-37.0); MEAN PLATELET VOLUME 10.7 fl (7.4-10.4); MONO # 0.9 K/mm3 (0.1-0.6); MONO % 17.3 % (1.7-9.3); PLATELET COUNT 216 K/mm3 (130-400)
[2023-05-26 05:54] LABS: COLLECTION METHOD CLEAN CATCH
[2023-05-26 05:58] LABS: URINE APPEARANCE Clear (CLEAR/HAZY); URINE BLOOD TRACE-LYSED (NEGATIVE); URINE COLOR Yellow (YELLOW); URINE GLUCOSE Negative (NEGATIVE); URINE KETONE Negative (NEGATIVE); URINE NITRATE Negative (NEGATIVE); URINE PROTEIN(semi-quant) Negative (NEGATIVE); URINE UROBILINOGEN 0.2 E.U/dL (0.2-1.0)
[2023-05-26 06:05] LABS: URINE BACTERIA Rare /hpf (NONE SEEN); URINE RBC 0-2 /hpf (0-2)
[2023-05-26 06:15] LABS: ALANINE AMINOTRANSFERASE 14 U/L (0-55); ALBUMIN 3.6 gm/dL (3.4-4.8); ALKALINE PHOSPHATASE 72 U/L (40-150); ANION GAP 13 mmol/L (7-16); AST,SGOT 21 U/L (5-34); BILIRUBIN,TOTAL 0.6 mg/dL (0.2-1.2); BLOOD UREA NITROGEN 14 mg/dL (10-20); CALCIUM 9.4 mg/dL (8.4-10.2); CARBON DIOXIDE 23 mmol/L (23-31); CHLORIDE 106 mmol/L (98-107); CREATININE, serum 0.81 mg/dL (0.57-1.11); GLUCOSE 94 mg/dL (70-99); POTASSIUM 4.1 mmol/L (3.5-4.5); SODIUM 142 mmol/L (136-145); TOTAL PROTEIN 6.3 gm/dL (6.2-8.1)
[2023-05-26 06:35] LABS: TSH w REFLEX 3.887 uIU/mL (0.350-4.940)
[2023-05-26] MEDS ORDERED: CALCIUM 600 MG1 EAC2 PO (06:37)
[2023-05-26 06:43] LABS: TROPONIN-I < 0.010 ng/mL (0.00-0.033)
--- NOTE | 2023-05-26 08:00 | NUR ---
PATIENT ADMITTED TO MEDICAL UNIT AT THIS TIME. ADMISSION INTAKE AND ASSESSMENT COMPLETED. MED REC UPDATED. PATIENT DENIES ANY CHEST PAIN AT THIS TIME, REPORTS A FEELING OF TIGHTNESS EARLIER TODAY. FAMILY AT BEDSIDE. PATIENT ORIENTED TO ROOM. CALL LIGHT WITHIN REACH, BED ALARM IN PLACE. AWAITING FURTHER ORDERS AT THIS TIME.
--- NOTE | 2023-05-26 10:32 | NUR ---
Initial visit; Patient and her family thanked for looking in on her and visiting and offering God's blessings. It was nice to see patient and her family again, she remembered them from a former visit with Tonie. prays Tonie recovers rapidly and thoroughly.
--- NOTE | 2023-05-26 13:21 | NUR ---
freezing room worker met with pt, [id number] Chelle, and son - TIBURCIO Gregorio at bedside. Pt reports she lives at [facility] and has [facility] there. She sees Dr. Ruiz and obtains medications from [facility] without difficulties. She is independent with ADLS, but reports needding SBA for bathing. She has a FWW, wheelchair, and rolator for DME. Chelle provided SW with an updated DPOA-HC listing herself and Jg on there. SW made a copy and put it in the chart. SW was informed by son that on the DNR, they clarified last time about what she does/does not want re: chest compressions. The family said they will have a new one made by Dr. Ruiz. YADIEL passed this onto RN Hope to have a conversation with the family. YADIEL faxed updates to [facility] and [facility]. YADIEL recieved a call from Racquel with [facility] wanting an update. She requests discharge orders f: [phone] Discharge Plan: [facility] with [facility]
--- NOTE | 2023-05-26 22:59 | NUR ---
PATIENT DOES NOT APPEAR TO BE IN DISTRESS AT THIS TIME. BED IN LOW POSITION AND CALL LIGHT WITHIN REACH. PATIENT DOES NOT HAVE ANY QUESTIONS/CONCERNS OR NEEDS AT THIS TIME.
--- NOTE | 2023-05-26 23:05 | NUR ---
TECH CALLED RN AT THIS TIME DUE TO PATIENT'S SYSTOLIC BEING IN MID 160S. RN WILL RECHECK IN 45 MINUTES.
--- NOTE | 2023-05-26 23:54 | NUR ---
PATIENT'S BLOOD PRESSURE WAS 171/51 AT THIS TIME WITH A HEART RATE OF 55. ARTIST SUSPECT CALLED - RN TOLD TO "LET PATIENT BE AND GET HER SOME REST."
[2023-05-27] VITALS (7 sets, daily range): BP systolic 136–173; BP diastolic 52–73; PULSE 51–57; TEMP 97.8–98.3
[2023-05-27 07:56] LABS: BASO % 0.8 % (0.0-2.0); EOS # 0.2 K/mm3 (0.0-0.7); GRAN # 2.8 K/mm3 (1.4-6.5); GRAN % 57.6 % (42.2-75.2); HEMATOCRIT 45.3 % (37.0-47.0); HEMOGLOBIN 14.5 g/dl (12.5-16.0); LYMPH % 21.6 % (20.0-51.0); MEAN CELL VOLUME 92 fl (80.0-100.0); MEAN CORPUSCULAR HEMOGLOBIN 29 pg (27-31); MEAN CORPUSCULAR HGB CONC 32 g/dl (33.0-37.0); MEAN PLATELET VOLUME 10.6 fl (7.4-10.4); MONO # 0.7 K/mm3 (0.1-0.6); MONO % 14.8 % (1.7-9.3); PLATELET COUNT 205 K/mm3 (130-400); RED BLOOD COUNT 4.93 M/mm3 (4.10-5.30); REDCELL DISTRIBUTION WIDTH-CV 14.1 % (11.5-14.5)
[2023-05-27 08:37] LABS: ALBUMIN 3.6 gm/dL (3.4-4.8); BILIRUBIN,TOTAL 0.6 mg/dL (0.2-1.2); CALCIUM 9.3 mg/dL (8.4-10.2); CREATININE, serum 0.87 mg/dL (0.57-1.11); POTASSIUM 4.4 mmol/L (3.5-4.5); TOTAL PROTEIN 6.4 gm/dL (6.2-8.1)
[2023-05-27] MEDS ORDERED: CORDARONE200 MG/TAB PO (10:13)
[2023-05-27] MEDS ORDERED: COZAAR 50MG50 MG/TAB PO (10:14)
--- NOTE | 2023-05-27 11:22 | NUR ---
Forest Fire Management Officer spoke with Hospitalist who advised patient is ready for discharge back to [facility] today. SW met with patient to provide update and she is agreeable. SW contacted patient's son, Jg to provide update. Jg advised he would be here sometime after 1500 to turkey picker patient to take her back to [facility]. YADIEL contacted Yamila at [facility] and faxed discharge orders. YADIEL then contacted [facility] and faxed discharge summary and orders. YADIEL also faxed discharge orders to Racquel at [facility] [[email or web address] Discharge Plan: [facility] [place] [facility]
--- NOTE | 2023-05-27 15:20 | NUR ---
ALL DISCHARGE INSTRUCTIONS REVIEWED WITH PT AND DAUGHTER IN LAW, ALL QUESTIONS ANSWERED AT THAT TIME. IV SITE TO RIGHT AC AND RIGHT WRIST DISCONTINUED, CATHETER TIPS INTACT. LITHOGRAPHIC GENERAL WORKER DISCONNECTED FROM PT. PT ESCORTED OUT BY PCT AND FAMILY VIA WHEELCHAIR. ALL PERSONAL BELONGINGS TAKEN WITH PT.
--- NOTE | 2023-05-28 12:40 | NUR ---
YADIEL recieved a call from [facility] requesting discharge orders. YADIEL faxed these. YADIEL faxed orders to Racquel with [facility].
== END 2023-05-27 15:21 | disposition home or self-care (01) ==
LOC: COL.ER 05:30 → MEDICAL 06:24
PROVIDERS: Internal Medicine; ADMIT Emergency Medicine
DX: I48.0 Paroxysmal atrial fibrillation (principal); I10 Essential (primary) hypertension; Z66 Do not resuscitate; Z85.3 Personal history of malignant neoplasm of breast; Z79.01 Long term (current) use of anticoagulants; Z95.818 Presence of other cardiac implants and grafts; Z79.899 Other long term (current) drug therapy
CPT/HCPCS: G0378; J0696; J1160

== ENCOUNTER → 2024-01-21 | Outpatient (CLI) | payer MEDICARE, MEDICAID | LOC: MC.RAD 12:51 | DX: Z85.3 Personal history of malignant neoplasm of breast (principal) ==